=== PATIENT | female | born 1930 | race Caucasian/White ===

== ENCOUNTER 2016-10-27 13:09 | Inpatient (IN) ==
[2016-10-27] MEDS ORDERED: Ondansetron 4 MG/2 ML VIAL IVP PRN (16:12)
[2016-10-27] MEDS ORDERED: *HR* HYDROcodone/Acet 5/325 mg TABLET PO PRN (16:12)
[2016-10-27] MEDS ORDERED: *HR* Morphine 2 MG/ML SYRINGE IVP PRN (16:12)
[2016-10-27] MEDS ORDERED: Acetaminophen 325 MG TABLET PO PRN (16:12)
[2016-10-27] MEDS ORDERED: Naloxone 0.4 MG/ML INJ IVP PRN (16:12)
[2016-10-27] MEDS ORDERED: *HR* Promethazine 25 MG/ML VIAL IVP PRN (16:12)
--- NOTE | 2016-10-27 16:13 | Orthopedic Consult Note ---
Date of Encounter: 10/27/16 Time of Encounter: 16:04 History of Present Illness HPI: Ms. Morales is a 86 year old female Lives alone at home status post fall injuring her right hand and right hip. Patient denies any head trauma denies any loss of consciousness. Past medical history most significant for coronary artery disease status post bypass surgery 2 years ago Physical exam Alert and oriented 3 Right lower extremity Short and externally rotated Decreased range of motion secondary to pain NVI x-ray - right hip fracture intertrochanteric non disp right distal radius fracture. Plan is for right hip ORIM fixation - non operative treatment for the wrist. Past Med Surg Social Fam HX - Past Medical History Medical history: coronary artery disease, diabetes, hyperlipidemia, hypertension , other Psychiatric history: no psych history - Past Surgical History Surgical History: appendectomy, cholecystectomy, coronary bypass (CABG) - Social History Smoking Status: Unknown if ever smoked Smokeless Tobacco Status: No Alcohol use: none Drug use: none Medications and Allergies Amlodipine [Norvasc] 5 mg PO DAILY 01/19/15 [History] Aspirin Enteric Coated [Aspirin] 81 mg PO DAILY 01/19/15 [History] Furosemide [Lasix] 40 mg PO DAILY 01/19/15 [History] Magnesium Oxide [Mag-Ox] 400 mg PO BID 01/19/15 [History] Metoprolol [Lopressor] 25 mg PO BID 01/19/15 [History] Potassium Chloride 20 meq PO DAILY 01/19/15 [History] Simvastatin [Zocor] 80 mg PO HS 01/19/15 [History] TraMADol [Ultram] 50 mg PO Q4HR 01/19/15 [History] glipiZIDE [Glucotrol] 10 mg PO BIDWM 01/19/15 [History] Allergies No Known Allergies Allergy (Verified 10/27/16 11:13) All Systems Reviewed: A 10-system review of systems was performed and is negative for pertinent findings except as documented above in the HPI. Physical Exam - Constitutional Vitals: Temp Pulse Resp BP Pulse Ox 98.4 F 78 17 113/50 95 10/27/16 15:43 10/27/16 15:43 10/27/16 15:43 10/27/16 15:43 10/27/16 15:45 Results - Labs Labs: All other labs normal. Consult Discharge Plan - Plan Referrals: NONE,PCP [Primary Care Provider] -
[2016-10-27] MEDS ORDERED: 0.9 % Sodium Chloride 1,000 ML IVC SCH (16:15)
--- NOTE | 2016-10-27 16:39 | Cardiology Consult Note ---
Date of Encounter: 10/27/16 Time of Encounter: 16:30 Assessment and Plan (1) Fracture, intertrochanteric, right femur Current Visit: No Status: Acute Per Cardiology: Status post what appears to be mechanical fall. Management per primary service with pending surgery tomorrow morning. Pain currently appears well controlled. Qualifiers: Encounter type: initial encounter Fracture type: closed Fracture alignment: displaced Qualified Code(s): S72.141A - Displaced intertrochanteric fracture of right femur, initial encounter for closed fracture (2) CAD (coronary artery disease) Current Visit: Yes Status: Chronic Per Cardiology: Known history of CAD with CABG 4 in [place] [address] Mckinnon. Reports no ischemic evaluation since bypass. 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 Recommend resume aspirin, statin, and beta michelle-- home meds. Qualifiers: Coronary Disease-Associated Artery/Lesion type: [place] artery [place] vs. transplanted heart: [place] heart Associated angina: without angina Qualified Code(s): I25.10 - Atherosclerotic heart disease of [place] coronary artery without angina pectoris (3) Preop cardiovascular exam Current Visit: Yes Status: Acute Per Cardiology: Patient denies any chest pain symptoms. ECG reviewed and discussed with Dr. Crews and comparable to baseline. Echo pending. Assuming no significant findings on echo patient to be considered intermediate risk for planned procedure from cardiac standpoint. Recommend beta michelle preoperatively. Discussed and reviewed with Dr. Crews. Patient and family agreeable to follow- up with cardiology in outpatient setting, follow-up scheduled. Patient and family agreeable to plan. Discussion w patient/family: The assessment and plan as outlined above was discussed with the patient and/or family members who expressed understanding and agreement. All questions were answered. Thank you for involving us in the care of your patient. Please call with any questions. History of Present Illness Consult date: 10/27/16 Requesting physician: Marlo Turner Consult reason: Preop, s/p fall Chief complaint: R hip pain History of present illness: Ms. Morales is a 86 year old female with a relevant past medical history CAD with CABG 4 in [address] [place] [address] Mckinnon. Patient and family deny any catheterization or stress test since surgery. Also has relevant past medical history of peripheral artery disease with a right CEA in 2004, history of CVA about 40 years ago, hysterectomy, CKD, HLD, DM2, and HTN. Cardiology consult for preoperative evaluation for pending surgery tomorrow morning. Patient seen with family at bedside. Patient denies any chest pain, short of breath, palpitations. Reports "been doing well" since her bypass surgery. She reports mechanical fall tripping on her porch. She denies any dizziness, palpitations, loss of consciousness. Denies any current chest pain or shortness of breath. Lives at home alone. Past Med Surg Social Fam HX - Past Medical History Attestation: Yes The following information was validated with the patient. Source: patient, old records reviewed, obtained from family Medical history: coronary artery disease, diabetes, hyperlipidemia, hypertension , other Psychiatric history: no psych history - Past Surgical History Surgical History: appendectomy, cholecystectomy, coronary bypass (CABG) - Social History Smoking Status: Unknown if ever smoked Smokeless Tobacco Status: No Alcohol use: none Drug use: none Medications and Allergies Amlodipine [Norvasc] 5 mg PO DAILY 01/19/15 [History] Aspirin Enteric Coated [Aspirin] 81 mg PO DAILY 01/19/15 [History] Furosemide [Lasix] 40 mg PO DAILY 01/19/15 [History] Magnesium Oxide [Mag-Ox] 400 mg PO BID 01/19/15 [History] Metoprolol [Lopressor] 25 mg PO BID 01/19/15 [History] Potassium Chloride 20 meq PO DAILY 01/19/15 [History] Simvastatin [Zocor] 80 mg PO HS 01/19/15 [History] TraMADol [Ultram] 50 mg PO Q4HR 01/19/15 [History] glipiZIDE [Glucotrol] 10 mg PO BIDWM 01/19/15 [History] Allergies No Known Allergies Allergy (Verified 10/27/16 11:13) All Systems Review: A 10-system review of systems was performed and is negative for pertinent findings except as documented above in the HPI. - Cardiovascular Cardiovascular: as per HPI - Musculoskeletal Musculoskeletal: other (R hip pain) Physical Examination Vital Signs, Last 4 Hours Temp Pulse Resp BP Pulse Ox 10/27/16 15:45 95 10/27/16 15:43 98.4 F 78 17 113/50 95 General: Conversant, No Apparent Distress HEENT: Atraumatic, Normocephaly, Mucus Membranes Moist Neck: No JVD, Normal carotid pulses Cardiac: Reg Rate and Rhythm, Normal S1 and S2, No Murmur Lungs: Normal Breath Sounds, No Wheeze, Rales, Rhonchi Neuro: Alert and responsive, No focal deficits noted Abdomen: Soft, Non-Tender Skin: No rashes noted on visualized skin Musculoskeletal: No Chest Wall Tenderness Extremities: No Clubbing, No Cyanosis, No Edema, Normal Pulses Results Laboratory Tests 10/27/16 10/27/16 10/27/16 11:49 11:49 11:49 Hgb 11.5 Hct 33.8 L Plt Count 191 INR 1.1 Creatinine 1.54 H Est GFR (Non-Af Amer) 32 L AST 16 ALT 9 Active Medications Acetaminophen (Tylenol) 650 mg PO Q6HR PRN PRN Reason: Mild Pain (1-3) Stop: 04/28/17 16:13 Hydrocodone Bitart/Acetaminophen ([place] 5-325 Mg) 1 tab PO Q4HR PRN PRN Reason: Moderate Pain (4-6) Stop: 04/28/17 16:13 Enoxaparin Sodium (Lovenox) 30 mg SQ 0600 MARY PRN Reason: Protocol Stop: 04/29/17 06:01 Famotidine (Pepcid) 20 mg PO BID [facility] Stop: 04/28/17 21:01 Sodium Chloride (0.9 % Sodium Chloride) 1,000 mls @ 75 mls/hr IVC .[id number] [facility] Stop: 04/28/17 16:16 Morphine Sulfate (Morphine Sulfate) 2 mg IVP Q4HR PRN PRN Reason: Severe Pain (7-10) Stop: 04/28/17 16:13 Naloxone HCl (Narcan) 0.4 mg IVP Q2MIN PRN PRN Reason: Opioid Reversal Stop: 04/28/17 16:13 Ondansetron HCl (Zofran) 4 mg IVP Q8HR PRN PRN Reason: Nausea And Vomiting Stop: 04/28/17 16:13 Ondansetron HCl (Zofran Odt) 4 mg SL Q8HR PRN PRN Reason: Nausea And Vomiting Stop: 04/28/17 16:13 Promethazine HCl (Phenergan) 12.5 mg IVP Q6HR PRN PRN Reason: Nausea And Vomiting Stop: 04/28/17 16:13 - Imaging and Cardiology Echo: pending - EKG Interpretation EKG results cardiology: personally reviewed (comparable to previous ECG), sinus rhythm Consult Discharge Plan - Plan Referrals: NONE,PCP [Primary Care Provider] -
[2016-10-27 17:08] LABS: Basophils % 0.2 %; Hematocrit 33.2 % (35.3-44.9); Hemoglobin 10.6 g/dL (11.5-15.4); Immature Granulocytes % 0.7 % (0-4); Lymphocytes # 0.9 K/mcL (0.6-4.6); Lymphocytes % 5.2 %; Mean Corpuscular HGB Conc 31.9 g/dL (31.6-35.5); Mean Corpuscular Hemoglobin 30.5 pg (28.0-33.3); Mean Corpuscular Volume 95.4 fL (83.0-100.0); Mean Platelet Volume 11.2 fL (9.4-12.4); Monocytes # 1.1 K/mcL (0.0-1.3); Neutrophils # 15.5 K/mcL (1.6-8.9); Platelet Count 189 K/mcL (140-400); Red Blood Count 3.48 M/mcL (3.82-4.97); Red Cell Distribution Width 13.2 % (11.5-14.5); Segmented Neutrophils % 87.9 %
[2016-10-27 17:16] LABS: INR 1.1
[2016-10-27 17:18] LABS: Activated Partial Thrombo Time 31.8 Seconds (26.0-36.0)
[2016-10-27 17:22] LABS: Calcium 8.5 mg/dL (8.6-10.8)
--- NOTE | 2016-10-27 19:02 | Internal Med History&Physical ---
Date of Encounter: 10/27/16 Time of Encounter: 18:52 Assessment and Plan (1) Fracture, intertrochanteric, right femur Current visit: No Status: Acute Admit the pt into Tele Cont symptomatic and supportive care started on gentle IV hydration NPO after mid night IV analgesics Ortho Dr. Turner already seen the pt ..scheduled for surgery in AM Consulted Cardiology for pre op cardiac eval since pt is going for major surgery PT / OT eval On Lovenox for DVT prophylaxis Qualifiers: Encounter type: initial encounter Fracture type: closed Fracture alignment: displaced Qualified Code(s): S72.141A - Displaced intertrochanteric fracture of right femur, initial encounter for closed fracture (2) Radius distal fracture Current visit: No Status: Acute Cont wrist splint Need to f/u with Ortho as an out pt closely PT / OT eval Qualifiers: Encounter type: initial encounter Fracture type: closed Fracture morphology: other intra-articular Laterality: right Qualified Code(s): S52.571A - Other intraarticular fracture of lower end of right radius, initial encounter for closed fracture (3) CAD (coronary artery disease) Current visit: Yes Status: Chronic Ordered 2 D Echo Resumed home med ASA, Statin, and B michelle Qualifiers: Coronary Disease-Associated Artery/Lesion type: [place] artery [place] vs. transplanted heart: [place] heart Associated angina: without angina Qualified Code(s): I25.10 - Atherosclerotic heart disease of [place] coronary artery without angina pectoris (4) Diabetes mellitus Current visit: Yes Status: Acute Placed her on ISS Check HbA1C Held PO meds for today Qualifiers: Diabetes mellitus type: type 2 Diabetes mellitus complication status: without complication Qualified Code(s): E11.9 - Type 2 diabetes mellitus without complications (5) Hypertension Current visit: Yes Status: Acute Resumed home meds Including Metoprolol and Norvasc Qualifiers: Qualified Code(s): I10 - Essential (primary) hypertension Internal Medicine - H&P: HPI Chief complaint: Fall with Rt hip and Rt wrist fx History of present illness: Ms. Morales is a 86 year old female with a PMH of CKD, HLD, DM2, HTN and CAD with CABG 4 in [address] [place] [address] Mckinnon, peripheral artery disease with a right CEA in 2004, history of CVA pt presented to ER after a fall this morning. Pt had a mechanical fall tripping on her porch and developed severe pain in Rt hip. Pt had further work up done which showed Rt femur intertronchanteric fx and Rt wrist fx. Orthopedician Dr. Turner was consulted who is planning on doing surgery in AM. Patient and family denied any catheterization or stress test since her CABG. Pt also denied any CP / SOB. Feeling nauseated.. Her pain is well controlled with current pain medication Past Med Surg Social Fam HX - Past Medical History Medical history: coronary artery disease, diabetes, hyperlipidemia, hypertension , other Psychiatric history: no psych history - Past Surgical History Surgical History: appendectomy, cholecystectomy, coronary bypass (CABG) - Social History Smoking Status: Unknown if ever smoked Smokeless Tobacco Status: No Alcohol use: none Drug use: none - Additional Family History Additional family history: Reviewed and non contribuitory to the current problem Internal Medicine - H&P: Meds Amlodipine [Norvasc] 5 mg PO DAILY 01/19/15 [History] Aspirin Enteric Coated [Aspirin] 81 mg PO DAILY 01/19/15 [History] Furosemide [Lasix] 40 mg PO DAILY 01/19/15 [History] Magnesium Oxide [Mag-Ox] 400 mg PO BID 01/19/15 [History] Metoprolol [Lopressor] 25 mg PO BID 01/19/15 [History] Potassium Chloride 20 meq PO DAILY 01/19/15 [History] Simvastatin [Zocor] 80 mg PO HS 01/19/15 [History] TraMADol [Ultram] 50 mg PO Q4HR 01/19/15 [History] glipiZIDE [Glucotrol] 10 mg PO BIDWM 01/19/15 [History] Allergies No Known Allergies Allergy (Verified 10/27/16 11:13) All Systems PM: A 10-system review of systems was performed and is negative for pertinent findings except as documented above in the HPI. Review of systems: All the systems are reviewed everything is benign except the systems and symptoms I mentioned in the history of present illness - Constitutional Vitals: Temp Pulse Resp BP Pulse Ox 98.4 F 78 17 113/50 95 10/27/16 15:43 10/27/16 15:43 10/27/16 15:43 10/27/16 15:43 10/27/16 15:45 General appearance: Present: mild distress, A&O X 3, answers questions appropriately - Head Head exam: Present: atraumatic, normal inspection - Eye Eye exam: Present: normal appearance - Neck Neck exam general surgery: Present: full ROM, supple. Absent: lymphadenopathy - Respiratory Respiratory exam: Present: decreased breath sounds. Absent: rales, rhonchi, wheezes - Cardiovascular Cardiovascular exam: Present: RRR, +S1, +S2. Absent: diastolic murmur, gallop, systolic murmur - GI/Abdominal GI/Abdominal exam: Present: normal bowel sounds, soft, no peritoneal signs. Absent: distended, tenderness - Extremities Exam Extremities exam: Absent: calf tenderness, pedal edema, tenderness Additional comments: splint placed on Rt wrist.. Able to wiggle her Rt hand fingers..Neuro vascularly intact distally in RUE and RLE Mild swelling and tenderness noticed over rt hip - Neurological Exam Neurological exam: Present: alert, oriented X3 - Psychiatric Psychiatric exam: Present: normal affect, normal mood - Skin Skin exam: Present: intact. Absent: rash Internal Med - H&P Results - Labs CBC & Chem 7: 10/27/16 16:52 10/27/16 16:52 Labs: Short CBC 10/27/16 Range/Units 16:52 WBC 17.6 H D (4.3-11.1) K/mcL Hgb 10.6 L (11.5-15.4) g/dL Hct 33.2 L (35.3-44.9) % Plt Count 189 (140-400) K/mcL Neutrophils # 15.5 H (1.6-8.9) K/mcL BMP 10/27/16 16:52 Sodium 142 Potassium 4.0 Chloride 109 Carbon Dioxide 22 BUN 18 Creatinine 1.47 H Glucose 185 H Calcium 8.5 L - EKG Data -: EKG Interpreted by Myself (Sinus rythm with VR 82. Mild first degree AV blokc. Incomplete RBBB.) EKG shows normal: sinus rhythm Rate: normal
[2016-10-27] MEDS ORDERED: Dextrose Gel 15 GM PO PRN ×2 (19:11)
[2016-10-27] MEDS ORDERED: *HR* Dextrose 50 % in Water (Syg) 50 ML SYRINGE IVP PRN (19:11)
[2016-10-27] MEDS ORDERED: D5% in Water 1,000 ML IVC PRN (19:11)
[2016-10-27] MEDS ORDERED: Insulin LISPRO 300 UNITS/3 ML VIAL SQ SCH (19:15)
[2016-10-27] MEDS: Ondansetron ODT 4 MG TAB.RAPDIS SL PRN (19:32)
[2016-10-27] MEDS ORDERED: *HR* Morphine 2 MG/ML SYRINGE IVP ONE (20:23)
[2016-10-27 20:59] LABS: Hemoglobin A1C 6.7 %
[2016-10-27] MEDS ORDERED: Famotidine 20 MG TABLET PO SCH (21:00)
[2016-10-27] MEDS ORDERED: Magnesium Oxide 400 MG TABLET PO SCH (21:00)
[2016-10-27] MEDS: *HR* Morphine 2 MG/ML SYRINGE IVP PRN (23:40)
[2016-10-28] MEDS: Ondansetron ODT 4 MG TAB.RAPDIS SL PRN (05:28)
[2016-10-28] MEDS: *HR* Morphine 2 MG/ML SYRINGE IVP PRN (05:57)
[2016-10-28] MEDS ORDERED: *HR* Enoxaparin 30 MG/0.3 ML SYRINGE SQ SCH (06:00)
[2016-10-28 07:07] LABS: Basophils % 0.1 %; Hematocrit 31.1 % (35.3-44.9); Hemoglobin 9.5 g/dL (11.5-15.4); Immature Granulocytes % 0.6 % (0-4); Lymphocytes # 1.3 K/mcL (0.6-4.6); Lymphocytes % 6.9 %; Mean Corpuscular HGB Conc 30.5 g/dL (31.6-35.5); Mean Corpuscular Hemoglobin 30.3 pg (28.0-33.3); Mean Platelet Volume 11.7 fL (9.4-12.4); Monocytes # 0.9 K/mcL (0.0-1.3); Monocytes % 4.6 %; Neutrophils # 16.9 K/mcL (1.6-8.9); Platelet Count 183 K/mcL (140-400); Red Blood Count 3.14 M/mcL (3.82-4.97); Red Cell Distribution Width 13.5 % (11.5-14.5); Segmented Neutrophils % 87.8 %
[2016-10-28] MEDS ORDERED: Lidocaine -MPF 2% 2 ML VIAL ONE ×2 (07:21→07:22)
[2016-10-28] MEDS ORDERED: *HR* Etomidate 40 MG/20 ML VIAL IVP ONE (07:21)
[2016-10-28] MEDS ORDERED: Ringers Solution, Lactated 1,000 ML ONE (07:21)
[2016-10-28] MEDS ORDERED: *HR* Succinylcholine 200 MG/10 ML VIAL IVP ONE (07:21)
[2016-10-28] MEDS ORDERED: Ringers Solution, Lactated 1,000 ML IVC SCH (07:22)
[2016-10-28] MEDS ORDERED: *HR* FentaNYL (PF) 100 MCG/2 ML VIAL ONE (07:22)
[2016-10-28] MEDS ORDERED: *HR* Propofol 200 MG/20 ML VIAL IVP ONE (07:22)
[2016-10-28] MEDS ORDERED: Lidocaine -MPF 4% 5 ML AMPUL ONE (07:25)
[2016-10-28 07:28] LABS: Calcium 8.5 mg/dL (8.6-10.8); Magnesium 1.8 mg/dL (1.6-2.6); Potassium 4.9 mEq/L (3.5-4.5)
--- NOTE | 2016-10-28 07:38 | Anesthesia Evaluation PreOp ---
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 Other Medical History: Diabetes Type II (maintained on Glipizide) Anesthesia History: No Prior Anesthetic Complications, Past Anesthesia ([place], [place], CABG) Alcohol Use: none Drug use: none Medications and Allergies Amlodipine [Norvasc] 5 mg PO DAILY 01/19/15 [History] Aspirin Enteric Coated [Aspirin] 81 mg PO DAILY 01/19/15 [History] Furosemide [Lasix] 40 mg PO DAILY 01/19/15 [History] Magnesium Oxide [Mag-Ox] 400 mg PO BID 01/19/15 [History] Metoprolol [Lopressor] 25 mg PO BID 01/19/15 [History] Potassium Chloride 20 meq PO DAILY 01/19/15 [History] Simvastatin [Zocor] 80 mg PO HS 01/19/15 [History] TraMADol [Ultram] 50 mg PO Q4HR 01/19/15 [History] glipiZIDE [Glucotrol] 10 mg PO BIDWM 01/19/15 [History] Allergies No Known Allergies Allergy (Verified 10/27/16 11:13) - Meds/Allergy Pre-op Review Medications Reviewed: Yes Allergies Reviewed: Yes Beta Blockers on Current Med List: Yes (Metoprolol) If Beta Blockers taken, Date/Time (Last Dose taken): 10/27/16 @ 2056 Anesthesia Results - Labs 10/28/16 06:38 10/28/16 06:38 Laboratory Tests 10/27/16 10/27/16 10/28/16 16:52 16:52 04:03 PT 12.0 INR 1.1 APTT 31.8 POC Glucose 223 H Est Mean Plasma Glucose 146 Hemoglobin A1c 6.7 H - Imaging EKG: image reviewed (82bpm SR - 1st degree AVBlock, RBBB) Anesthesia Exam Vital Signs Temp Pulse Resp BP Pulse Ox 10/28/16 05:05 98.0 F 78 16 122/61 93 07/29/17 00:01 98.1 F 77 18 125/65 94 10/27/16 20:11 98.4 F 83 22 129/62 94 10/27/16 15:45 95 10/27/16 15:43 98.4 F 78 17 113/50 95 Intake and Output 10/27/16 10/27/16 10/28/16 15:59 23:59 07:59 Intake Total 100 / 100 Output Total 500 / 500 Balance 100 / 100 -500 / -500 Intake: Oral 100 / 100 Output: Catheter 500 / 500 Other: Weight 71.3 kg Blood Glucose* 188 Height: 5'4" Weight: 157# bmi = 27 NPO (# of Hours): MNoc - HEENT Pupil (Motor): Pupils equal, EOMI Teeth: Edentulous (Pt sleeping/groaning, unable to cooperate with airway exam) Oral Opening: Greater than 3 - TARIFF COMPILING CLERK LOC: Uncooperative, Unable to assess TARIFF COMPILING CLERK Motor: Normal RUE, Normal LUE, Normal LLE, Normal Face, Deficit RLE TARIFF COMPILING CLERK Sensory: Normal: RUE, LUE, LLE, Face, Deficit: RLE - Cardiac Rhythm: Regular Murmur: None JVD: No - Pulmonary Breath Sounds: bilateral Clear Respiratory Effort: Symmetrical Anesthesia Assess/Plan ASA Score: 3 Anesthetic Plan: General Monitoring Plan: Standard Monitors Recovery Plan: PACU Anes Supervising Prov Stmt: Pt seen/evaluated, R&B discussed w/[facility] [son] Tato Morales [[phone] mobile]. Son present w/his in HR#1. Questions answered and consent obtained. Aundrea Brice MD
[2016-10-28] MEDS ORDERED: Metoclopramide 10 MG/2 ML VIAL ONE (07:50)
[2016-10-28] MEDS ORDERED: Acetaminophen IV 1,000 MG/100 ML INFUS..BTL ONE (07:50)
[2016-10-28] MEDS ORDERED: Famotidine 20 MG/2 ML VIAL ONE (07:51)
[2016-10-28] MEDS ORDERED: Ondansetron 4 MG/2 ML VIAL ONE (08:33)
[2016-10-28] MEDS ORDERED: Dexamethasone 4 MG/ML VIAL ONE (08:33)
[2016-10-28] MEDS ORDERED: *HR* HYDROmorphone (PF) 1 MG/ML SYRINGE IVP PRN ×2 (08:40→09:38)
[2016-10-28] MEDS ORDERED: *HR* Promethazine 25 MG/ML VIAL IVP PRN (08:40)
[2016-10-28] MEDS ORDERED: *HR* Labetalol 20 MG/4 ML SYRINGE IVP PRN (08:40)
--- NOTE | 2016-10-28 08:45 | Orthopedic Operative Note ---
Date of procedure: 10/28/16 Pre-op diagnosis: Displaced intertrochanteric hip fracture right Post-op diagnosis: same Procedure: Procedure: Right hip open reduction intramedullary nail fixation Estimated blood loss: 50 cc Hardware: Metal: 10 x 130 Synthes TFN, 100 helical blade, 36 distal locking bolt Operative procedure: The patient was brought to the operating room and placed on the operating room table. After general anesthesia was administered the well leg was place in the well leg estrella and the operative leg was placed in the fracture leg estrella. All pressure points were padded appropriately. The operative extremity was prepped and draped in the sterile surgical fashion patient received IV antibiotic prior to skin incision. A standard direct lateral approach was made over the entry point of the greater trochanter, the incision was made through the skin and subcutaneous tissue hemostasis was obtained with Bovie cautery. Using careful sharp dissection the fascia was identified and incised, flouroscopic assistance was used to identify the entry point. The guidepin was placed at the entry point using fluroscopic assistance, it was over reamed with the proximal reamer. The 10 x 130 nail was placed through the entry hole, across the fracture site into the distal fragment the position was confirmed with fluroscopy. A guide pin was placed through the proximal locking guide from the lateral femur through the nail across the fracture site into the femoral head, it was over reamed with the reamer. The 100 mm helical blade was placed over the guide pin through the nail into the femoral head, locked in place with the proximal locking bolt. 36 mm Distal locking bolt was placed through the distal locking guide. The position of hardware and fracture reduction found to be acceptable with fluroscopic assistance. The wound was irrigated. Fascia was closed with a running #2 PDS suture. The deep tissue was irrigated and closed deep with #1 PDS suture superficially with 0 PDS suture and skin was closed with genet. The patient was placed in a sterile dressing The patient was extubated and transferred to the recovery room in stable condition. Anesthesia: GETA Surgeon: Marlo Turner Condition: stable Disposition: PACU
[2016-10-28] MEDS ORDERED: Aspirin Enteric Coated 81 MG Tablet PO SCH (09:00)
[2016-10-28] MEDS ORDERED: amLODIPine 5 MG TABLET PO SCH (09:00)
[2016-10-28] MEDS ORDERED: Metoprolol XL (24 HR) Succ 25 MG TAB.ER.24H PO SCH (09:00)
[2016-10-28] MEDS ORDERED: Aspirin 81 MG TAB.CHEW PO SCH (09:00)
[2016-10-28] MEDS ORDERED: Esmolol 100 MG/10 ML VIAL IVP ONE (09:36)
--- NOTE | 2016-10-28 09:37 | Anesthesia Evaluation Post Op ---
Date of Encounter: 10/28/16 Time of Encounter: 09:35 - Vital Signs Vital Signs: Vital Signs Temp Pulse Resp BP Pulse Ox 10/28/16 09:32 97.2 F L 70 12 144/59 100 10/28/16 09:22 71 12 149/56 100 10/28/16 09:12 68 8 160/56 100 10/28/16 09:02 98 F 68 10 150/66 100 10/28/16 05:05 98.0 F 78 16 122/61 93 10/28/16 00:01 98.1 F 77 18 125/65 94 10/27/16 20:11 98.4 F 83 22 129/62 94 10/27/16 15:45 95 10/27/16 15:43 98.4 F 78 17 113/50 95 Intake and Output 10/27/16 10/28/16 10/28/16 23:59 07:59 15:59 Intake Total 100 / 100 Output Total 500 / 500 15 / 15 Balance 100 / 100 -500 / -500 -15 / -15 Intake: Oral 100 / 100 Output: Estimated Blood Loss 15 Catheter 500 / 500 Other: Blood Glucose* 188 200 - Lungs Lungs: Clear Ascult./Percussion - Airway Airway: Non-obstructed - Cardiovascular Regular Rate - Mental Status Mental Status: Asleep with brisk response to light stimulation - Pain Pain Scale: 1 Pain Scale used: RubioMartinez (Faces) - Nausea Vomiting Nausea Vomiting: Not Present - Hydration Hydration: NPO, Sullivan catheter - Discharge PostOp Status: Transfer Patient to floor Anes Supervising Prov Stmt: pt seen/evaluated, VSS and pt has met criteria for discharge to home. - MD Yuniel
[2016-10-28] MEDS ORDERED: ceFAZolin 2,000 MG in D5% in Water 100 ML IVPB SCH (09:38)
[2016-10-28] MEDS ORDERED: Ondansetron ODT 4 MG TAB.RAPDIS SL PRN (09:38)
[2016-10-28] MEDS ORDERED: Dextrose Gel 15 GM PO PRN ×4 (09:38→13:58)
[2016-10-28] MEDS ORDERED: D5% in Water 1,000 ML IVC PRN ×2 (09:38→13:58)
[2016-10-28] MEDS ORDERED: *HR* Dextrose 50 % in Water (Syg) 50 ML SYRINGE IVP PRN ×2 (09:38→13:58)
[2016-10-28] MEDS ORDERED: *HR* HYDROcodone/Acet 5/325 mg TABLET PO PRN (09:38)
[2016-10-28] MEDS ORDERED: Naloxone 0.4 MG/ML INJ IVP PRN (09:38)
[2016-10-28] MEDS: Ringers Solution, Lactated 1,000 ML IVC SCH (09:55)
[2016-10-28 10:45] LABS: Hematocrit 30.5 % (35.3-44.9); Hemoglobin 9.4 g/dL (11.5-15.4)
[2016-10-28] MEDS ORDERED: Insulin LISPRO 300 UNITS/3 ML VIAL SQ SCH (11:30)
[2016-10-28] MEDS: 0.9 % Sodium Chloride 1,000 ML IVC SCH (12:13)
--- NOTE | 2016-10-28 13:54 | Internal Med Progress Note ---
Date of Encounter: 10/28/16 Time of Encounter: 13:51 - Assessment and plan (1) Fracture, intertrochanteric, right femur Current Visit: No Status: Acute Assessment and plan: s/p right hip ORIM fixation (10/28/16) orthopedic evaluation appreciated DVT ppx with Enoxaparin SQ continue post op care as per ortho PT/OT eval when able Qualifiers: Encounter type: initial encounter Fracture type: closed Fracture alignment: displaced Qualified Code(s): S72.141A - Displaced intertrochanteric fracture of right femur, initial encounter for closed fracture (2) Radius distal fracture Current Visit: No Status: Acute Assessment and plan: splint in place pain control Qualifiers: Encounter type: initial encounter Fracture type: closed Fracture morphology: other intra-articular Laterality: right Qualified Code(s): S52.571A - Other intraarticular fracture of lower end of right radius, initial encounter for closed fracture (3) CAD (coronary artery disease) Current Visit: Yes Status: Chronic Assessment and plan: continue home medications Qualifiers: Coronary Disease-Associated Artery/Lesion type: [place] artery [place] vs. 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 Qualified Code(s): E11.9 - Type 2 diabetes mellitus without complications (5) Hypertension Current Visit: Yes Status: Acute Assessment and plan: BP within acceptable range continue home medications Qualifiers: Hypertension type: essential hypertension Qualified Code(s): I10 - Essential (primary) hypertension (6) DVT prophylaxis Current Visit: Yes Status: Acute Assessment and plan: Lovenox SQ (7) [place]-[id number]-[id number] kidney injury Current Visit: Yes Status: Acute Assessment and plan: of unclear etiology concern for UTI pt started on abx by ortho post-operatively will f/u UA and urine culture will closely monitor renal function Qualifiers: Acute renal failure type: unspecified Chronic kidney disease stage: unspecified stage Qualified Code(s): N17.9 - Acute kidney failure, unspecified ; N18.9 - Chronic kidney disease, unspecified - Subjective Interval history: Pt seen and examined with family at bedside. Patient post-op right hip open reduction intramedullary nail fixation. Currently sedated and sleeping comfortably. - Constitutional Vitals: Temp Pulse Resp BP Pulse Ox 97.9 F 72 12 136/69 99 10/28/16 12:47 10/28/16 12:47 10/28/16 12:47 10/28/16 12:47 10/28/16 12:47 General appearance: Present: no acute distress (sleeping -s/p procedure- currently sedated), answers questions appropriately - Head Head exam: Present: atraumatic, normocephalic - Eye Eye exam: Present: conjuntiva pink, sclera anicteric - Respiratory Respiratory exam: Absent: respiratory distress, wheezes - Cardiovascular Cardiovascular exam: Present: RRR, +S1, +S2. Absent: diastolic murmur, gallop, rubs, systolic murmur - GI/Abdominal GI/Abdominal exam: Present: normal bowel sounds, soft, no peritoneal signs. Absent: distended, tenderness - Extremities Exam Extremities exam: Present: warm, radial pulses palpable and symetrical. Absent : calf tenderness, pedal edema Internal Medicine: Result - Labs CBC & Chem 7: 10/28/16 09:37 10/28/16 06:38 Labs: Short CBC 10/27/16 10/28/16 10/28/16 Range/Units 16:52 06:38 09:37 WBC 17.6 H D 19.2 H (4.3-11.1) K/mcL Hgb 10.6 L 9.5 L 9.4 L (11.5-15.4) g/dL Hct 33.2 L 31.1 L 30.5 L (35.3-44.9) % Plt Count 189 183 (140-400) K/mcL Neutrophils # 15.5 H 16.9 H (1.6-8.9) K/mcL BMP 10/27/16 10/28/16 16:52 06:38 Sodium 142 138 Potassium 4.0 4.9 H Chloride 109 107 Carbon Dioxide 22 22 BUN 18 28 H D Creatinine 1.47 H 1.80 H Glucose 185 H 266 H Calcium 8.5 L 8.5 L - ABG Interpretation ABG results: PT/INR, D-dimer PT 12.0 Seconds (9.4-12.1) 10/27/16 16:52 - Impressions Impressions Fluoroscopy 10/28/16 00:00 IMPRESSION: Intraprocedural fluoroscopic spot images as above. See separate procedure report for more information. D/ / 10/28/2016 09:11:59 Lilian Gonzalez MD / Laila Lange Interpreting Provider: Lilian Gonzalez MD Consult Discharge Plan - Plan Referrals: NONE,PCP [Primary Care Provider] -
[2016-10-28] MEDS: ceFAZolin 2,000 MG in D5% in Water 100 ML IVPB SCH (15:53)
[2016-10-28] MEDS: Insulin LISPRO 300 UNITS/3 ML VIAL SQ SCH ×2 (16:50→21:23)
[2016-10-28 20:10] LABS: Bilirubin,Urine Negative (Negative); Blood,Urine Small (Negative); Clarity,Urine Cloudy (Clear); Color,Urine Yellow (Yellow); Glucose,Urine (UA) Normal (Normal); Ketones,Urine Trace mg/dL (Negative); Leukocyte Esterase,Urine Moderate (Negative); Nitrite,Urine Negative (Negative); PH,Urine 5.5 pH Units (5.0-8.0); Protein,Urine 100 mg/dL (Neg-Trace); Specific Gravity,Urine 1.028 (1.010-1.025); Urobilinogen,Urine Normal (Normal)
[2016-10-28 20:13] LABS: Hyaline Casts,Urine None Seen per lpf (None-Few); Squamous Epithelial Cell,Urine Moderate per lpf (None-Few); WBC,Urine TNTC per hpf (0-3)
[2016-10-28 20:26] LABS: Bacteria,Urine Many per hpf (None-Few)
[2016-10-28] MEDS: *HR* Promethazine 25 MG/ML VIAL IVP PRN (21:22)
[2016-10-28] MEDS: Famotidine 20 MG TABLET PO SCH (21:22)
[2016-10-28] MEDS: Magnesium Oxide 400 MG TABLET PO SCH (21:23)
[2016-10-29] MEDS: ceFAZolin 2,000 MG in D5% in Water 100 ML IVPB SCH (00:39)
[2016-10-29] MEDS: 0.9 % Sodium Chloride 1,000 ML IVC SCH ×2 (00:55→08:18)
--- NOTE | 2016-10-29 01:12 | Orthopedics Progress Note ---
Date of Encounter: 10/29/16 Time of Encounter: 01:12 Subjective Interval history: Patient was seen this morning doing well without complaints. Afebrile vital signs stable. Operative extremity: Neurovascularly intact Dressing clean dry and intact Calves nontender Assessment and plan: Continue with postoperative care Postop hematocrit 30 continue with postoperative care Objective Vital signs: Vital Signs Temp Pulse Resp BP Pulse Ox 10/29/16 00:58 98.2 F 76 15 125/60 99 10/28/16 21:43 98.5 F 77 16 132/64 99 10/28/16 12:47 97.9 F 72 12 136/69 99 10/28/16 12:05 97.6 F 71 12 145/72 100 10/28/16 11:00 97.9 F 71 12 145/75 100 10/28/16 09:46 74 6 133/52 97 10/28/16 09:32 97.2 F L 70 12 144/59 100 10/28/16 09:22 71 12 149/56 100 10/28/16 09:12 68 8 160/56 100 10/28/16 09:02 98 F 68 10 150/66 100 10/28/16 06:41 97.8 F 78 16 129/58 96 10/28/16 05:05 98.0 F 78 16 122/61 93 Intake and Output 10/28/16 10/28/16 10/29/16 15:59 23:59 07:59 Intake Total 100 / 100 1000 / 1000 Output Total 215 / 215 80 / 80 Balance -215 / -215 20 / 20 1000 / 1000 Intake: IV Fluids 100 / 100 1000 / 1000 0.9 % Sodium Chloride 1, 1000 / 1000 000 ML @ 75 mls/hr IVC . [id number] MARY Rx#: [id number] Ancef 2,000 MG In 100 / 100 Dextrose 5% 100 ML @ 200 mls/hr IVPB Q8HR MARY Rx#: [id number] Output: Estimated Blood Loss 15 / 15 Catheter 200 / 200 80 / 80 Other: Blood Glucose* 275 169 - Labs CBC & BMP: 10/28/16 09:37 10/28/16 06:38 Labs: Abnormal lab results WBC 19.2 K/mcL (4.3-11.1) H 10/28/16 06:38 RBC 3.14 M/mcL (3.82-4.97) L 10/28/16 06:38 Hgb 9.4 g/dL (11.5-15.4) L 10/28/16 09:37 Hct 30.5 % (35.3-44.9) L 10/28/16 09:37 MCHC 30.5 g/dL (31.6-35.5) L 10/28/16 06:38 Neutrophils # 16.9 K/mcL (1.6-8.9) H 10/28/16 06:38 Potassium 4.9 mEq/L (3.5-4.5) H 10/28/16 06:38 BUN 28 mg/dL (7-20) H D 10/28/16 06:38 Creatinine 1.80 mg/dL (0.57-1.11) H 10/28/16 06:38 Est GFR ( Amer) 32 (> 60) L 10/28/16 06:38 Est GFR (Non-Af Amer) 27 (> 60) L 10/28/16 06:38 Glucose 266 mg/dL (70-99) H 10/28/16 06:38 POC Glucose 169 (58-89) H 10/28/16 20:50 Hemoglobin A1c 6.7 % (-5.6) H 10/27/16 16:52 Calculated Osmolality 301 (280-300) H 10/28/16 06:38 Calcium 8.5 mg/dL (8.6-10.8) L 10/28/16 06:38 Urine Clarity Cloudy (Clear) A 10/28/16 20:00 Ur Specific [place] 1.028 (1.010-1.025) H 10/28/16 20:00 Urine Protein 100 mg/dL (Neg-Trace) H 10/28/16 20:00 Urine Ketones Trace mg/dL (Negative) H 10/28/16 20:00 Urine Blood Small (Negative) H 10/28/16 20:00 Ur Leukocyte Esterase Moderate (Negative) H 10/28/16 20:00 Urine Microscopic RBC 5-15 per hpf (0-3) H 10/28/16 20:00 Urine Microscopic WBC TNTC per hpf (0-3) H 10/28/16 20:00 Ur Squamous Epith Cells Moderate per lpf (None-Few) H 10/28/16 20:00 Urine Bacteria Many per hpf (None-Few) H 10/28/16 20:00 Consult Discharge Plan - Plan Referrals: NONE,PCP [Primary Care Provider] -
[2016-10-29 01:23] LABS: Hematocrit 29.3 % (35.3-44.9); Hemoglobin 9.3 g/dL (11.5-15.4); Mean Corpuscular HGB Conc 31.7 g/dL (31.6-35.5); Mean Corpuscular Hemoglobin 30.7 pg (28.0-33.3); Mean Corpuscular Volume 96.7 fL (83.0-100.0); Mean Platelet Volume 11.8 fL (9.4-12.4); Platelet Count 165 K/mcL (140-400); Red Blood Count 3.03 M/mcL (3.82-4.97); Red Cell Distribution Width 13.5 % (11.5-14.5)
[2016-10-29 01:39] LABS: Calcium 8.4 mg/dL (8.6-10.8); Magnesium 1.7 mg/dL (1.6-2.6); Phosphorous 3.1 mg/dL (2.3-4.7); Potassium 4.7 mEq/L (3.5-4.5)
[2016-10-29 02:05] LABS: Lymphocytes # 0.6 K/mcL (0.6-4.6); Monocytes # 1.2 K/mcL (0.0-1.3); Neutrophils # 18.3 K/mcL (1.6-8.9)
[2016-10-29 02:06] LABS: Basophilic Stippling 1+ (Not Present); Platelet Estimate Normal (Normal)
[2016-10-29] MEDS: *HR* Enoxaparin 30 MG/0.3 ML SYRINGE SQ SCH (04:25)
[2016-10-29] MEDS: Ondansetron 4 MG/2 ML VIAL IVP PRN (05:25)
[2016-10-29] MEDS: *HR* Promethazine 25 MG/ML VIAL IVP PRN ×3 (05:32→23:46)
[2016-10-29] MEDS: Aspirin Enteric Coated 81 MG Tablet PO SCH ×2 (07:26→08:25)
[2016-10-29] MEDS ORDERED: Vancomycin 1,500 MG in D5% in Water 250 ML IVPB ONE (07:57)
[2016-10-29] MEDS: Insulin LISPRO 300 UNITS/3 ML VIAL SQ SCH ×4 (08:19→22:19)
[2016-10-29] MEDS: Piperacillin/Tazobactam 3.375 GM in D5% in Water (Mini-Bag+) 100 ML IVPB SCH ×2 (08:19→20:04)
[2016-10-29] MEDS: Magnesium Oxide 400 MG TABLET PO SCH ×2 (08:26→20:02)
[2016-10-29] MEDS: Famotidine 20 MG TABLET PO SCH ×2 (08:26→20:02)
[2016-10-29] MEDS: Ringers Solution, Lactated 1,000 ML IVC SCH (08:26)
[2016-10-29] MEDS ORDERED: Metoprolol XL (24 HR) Succ 25 MG TAB.ER.24H PO SCH (09:00)
[2016-10-29] MEDS ORDERED: amLODIPine 5 MG TABLET PO SCH (09:00)
[2016-10-29] MEDS: *HR* Metoprolol 5 MG/5 ML VIAL IVP SCH ×3 (09:08→20:04)
--- NOTE | 2016-10-29 10:50 | Internal Med Progress Note ---
Date of Encounter: 10/29/16 Time of Encounter: 08:15 - Assessment and plan (1) Fracture, intertrochanteric, right femur Current Visit: No Status: Acute Assessment and plan: s/p right hip ORIM fixation (10/28/16)-POD 1 orthopedic evaluation appreciated DVT ppx with Enoxaparin SQ continue post op care as per ortho PT/OT eval when able Qualifiers: Encounter type: initial encounter Fracture type: closed Fracture alignment: displaced Qualified Code(s): S72.141A - Displaced intertrochanteric fracture of right femur, initial encounter for closed fracture (2) Radius distal fracture Current Visit: No Status: Acute Assessment and plan: splint in place pain control Qualifiers: Encounter type: initial encounter Fracture type: closed Fracture morphology: other intra-articular Laterality: right Qualified Code(s): S52.571A - Other intraarticular fracture of lower end of right radius, initial encounter for closed fracture (3) CAD (coronary artery disease) Current Visit: Yes Status: Chronic Assessment and plan: continue home medications (ASA, BB, statin) Qualifiers: Coronary Disease-Associated Artery/Lesion type: [place] artery [place] vs. 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 [facility]p insulin use status Qualified Code(s): E11.9 - Type 2 diabetes mellitus without complications (5) Hypertension Current Visit: Yes Status: Acute Assessment and plan: BP within acceptable range continue home medications Qualifiers: Hypertension type: essential hypertension Qualified Code(s): I10 - Essential (primary) hypertension (6) DVT prophylaxis Current Visit: Yes Status: Acute Assessment and plan: Lovenox SQ (7) Yvfks-cz-wkpigfo kidney injury Current Visit: Yes Status: Acute Assessment and plan: of unclear etiology renal function improved from previous day UA concerning for UTI will continue empiric IV abx and f/u urine cultures Qualifiers: Acute renal failure type: unspecified Chronic kidney disease stage: unspecified stage Qualified Code(s): N17.9 - Acute kidney failure, unspecified ; N18.9 - Chronic kidney disease, unspecified (8) Sepsis Current Visit: Yes Status: Acute Assessment and plan: Concern for aspiration PNA started empiric IV abx and IV fluids LA wnl started IV BB will maintain NPO at this time until mental status more awake and alert f/u blood cultures Qualifiers: Sepsis type: sepsis due to unspecified organism Qualified Code(s): A41.9 - Sepsis, unspecified organism (9) Aspiration pneumonia Current Visit: Yes Status: Acute Assessment and plan: as listed above Qualifiers: Laterality: unspecified laterality Lung location: unspecified part of lung Qualified Code(s): J69.0 - Pneumonitis due to inhalation of food and vomit - Subjective Interval history: Pt seen and examined with family at bedside. Patient post-op day # 1: right hip open reduction intramedullary nail fixation. Pt was noted to be lethargic, barely arousable, and tachycardic this morning. She was reported to have two episodes of vomiting overnight. Given elevated WBC , lethargic mental status, concern for aspiration pna. Will start empiric abx, NPO until mental status more awake and alert. Will start IV BB and d/c PO BB while NPO. - Constitutional Vitals: Temp Pulse Resp BP Pulse Ox 99.9 F H 134 15 134/85 99 10/29/16 07:55 10/29/16 07:55 10/29/16 07:55 10/29/16 07:55 10/29/16 07:55 General appearance: Present: A&O X 0 (lethargic, arousable to verbal stimuli), answers questions appropriately - Head Head exam: Present: atraumatic, normocephalic - Eye Eye exam: Present: conjuntiva pink, sclera anicteric - Respiratory Respiratory exam: Present: decreased breath sounds. Absent: respiratory distress, wheezes - Cardiovascular Cardiovascular exam: Present: +S1, +S2, tachycardia - GI/Abdominal GI/Abdominal exam: Present: normal bowel sounds, soft, no peritoneal signs. Absent: distended, tenderness - Extremities Exam Extremities exam: Present: warm, radial pulses palpable and symetrical. Absent : calf tenderness Internal Medicine: Result - Labs CBC & Chem 7: 10/29/16 00:59 10/29/16 00:59 Labs: Short CBC 10/28/16 10/29/16 Range/Units 09:37 00:59 WBC 20.1 H (4.3-11.1) K/mcL Hgb 9.4 L 9.3 L (11.5-15.4) g/dL Hct 30.5 L 29.3 L (35.3-44.9) % Plt Count 165 (140-400) K/mcL Neutrophils # 18.3 H (1.6-8.9) K/mcL BMP 10/29/16 00:59 Sodium 140 Potassium 4.7 H Chloride 108 Carbon Dioxide 24 BUN 37 H Creatinine 1.72 H Glucose 181 H Calcium 8.4 L Cardiac Enzymes 10/29/16 Range/Units 08:07 Troponin I 0.05 H* (0-0.03) ng/mL Urine 10/28/16 Range/Units 20:00 Urine Color Yellow (Yellow) Urine Clarity Cloudy A (Clear) Urine pH 5.5 (5.0-8.0) pH Units Ur Specific [place] 1.028 H (1.010-1.025) Urine Protein 100 H (Neg-Trace) mg/dL Urine Glucose (UA) Normal (Normal) mg/dL - ABG Interpretation ABG results: PT/INR, D-dimer PT 12.0 Seconds (9.4-12.1) 10/27/16 16:52 - Impressions Impressions Chest X-Ray 10/29/16 08:57 IMPRESSION: Minimal bibasilar opacification, which could represent atelectasis versus airspace disease. D/ / Marlo Johnson MD / Marlo Johnson MD Interpreting Provider: Marlo Johnson MD - VTE Documentation of Mechanical Device: Venous foot pump, device Consult Discharge Plan - Plan Referrals: NONE,PCP [Primary Care Provider] -
--- NOTE | 2016-10-29 11:19 | Cardiology Progress Note ---
Date of Encounter: 10/29/16 Time of Encounter: 09:15 Assessment and Plan (1) Fracture, intertrochanteric, right femur Current Visit: No Status: Acute Per Cardiology: Status post what appears to be mechanical fall. S/p surgery yesterday. Management per primary service. Qualifiers: Encounter type: initial encounter Fracture type: closed Fracture alignment: displaced Qualified Code(s): S72.141A - Displaced intertrochanteric fracture of right femur, initial encounter for closed fracture (2) Sepsis Current Visit: Yes Status: Acute Per Cardiology: On antibiotics. Management per primary service. Qualifiers: Sepsis type: sepsis due to unspecified organism Qualified Code(s): A41.9 - Sepsis, unspecified organism (3) Tachycardia Current Visit: Yes Status: Acute Per Cardiology: Re-consult for ST 130's. Suspect multifactorial-- concern for sepsis, pain, still not resuming home meds (Lopressor) d/t mental status. Now resolved and SR 70's - 80's with IV Lopressor. Recommend continue and resume PO when able. Will dc norvasc in case BB will need titrated. (4) CAD (coronary artery disease) Current Visit: Yes Status: Chronic Per Cardiology: Known history of CAD with CABG 4 [place] [address] Mckinnon. Reports no ischemic evaluation since bypass. 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 Resume home dose of asa, statin, BB when able to take home meds. Qualifiers: Coronary Disease-Associated Artery/Lesion type: [place] artery [place] vs. transplanted heart: [place] heart Associated angina: without angina Qualified Code(s): I25.10 - Atherosclerotic heart disease of [place] coronary artery without angina pectoris (5) Elevated troponin I measurement Current Visit: Yes Status: Acute Per Cardiology: Mild trop 0.05 in post op setting and tachycardia with concerns for possible sepsis. Do not suspect NSTEMI-- no cardiac rehabilitation consult warranted. Preop echo showed: Ef preserved 6065%, no significant valvular dysfunction, no pulmonary hypertension, NSWMA. Will follow trops, if any significant increase can consider repeat limited echo. Discussion w patient/family: The assessment and plan as outlined above was discussed with the patient and/or family members who expressed understanding and agreement. All questions were answered. Thank you for involving us in the care of your patient. Please call with any questions. Subjective Principal diagnosis: Tachycardia Interval history: Patient seen with son at bedside. Patient remains somewhat somnolent. Patient denied any chest pain, short of breath, or palpitations. Speech is somewhat garbled. Patient unable to state name, year, or location. She did open eyes to verbal stimuli. Positive MAE4 to verbal commands. Objective Vital Signs, Last 4 Hours Temp Pulse Resp BP Pulse Ox 10/29/16 07:55 99.9 F H 134 15 134/85 99 HEENT: Atraumatic, Normocephaly Cardiac: Normal S1 and S2, No Murmur, Other (Sinus tachycardia on telemetry in the 130s) Lungs: Normal Breath Sounds, No Wheeze, Rales, Rhonchi Neuro: Other (Opens eyes to verbal stimuli, answered a few simple verbal questions with yes or no, did not respond to person, place, time, positive movement of all extremity 4 to verbal commands) Abdomen: Soft, Non-Tender Skin: No rashes noted on visualized skin Musculoskeletal: No Chest Wall Tenderness Extremities: No Edema, Normal Pulses Results 10/29/16 00:59 10/29/16 00:59 Lab Results Laboratory Tests 10/27/16 10/28/16 10/29/16 16:52 20:00 00:59 WBC 17.6 H D 20.1 H Hgb 10.6 L 9.3 L Hct 33.2 L 29.3 L Creatinine Est GFR (Non-Af Amer) Magnesium Troponin I Ur Leukocyte Esterase Moderate H Ur Squamous Epith Cells Moderate H Urine Bacteria Many H 10/29/16 10/29/16 00:59 08:07 WBC Hgb Hct Creatinine 1.72 H Est GFR (Non-Af Amer) 28 L Magnesium 1.7 Troponin I 0.05 H* Ur Leukocyte Esterase Ur Squamous Epith Cells Urine Bacteria Impressions Chest X-Ray 10/29/16 08:57 IMPRESSION: Minimal bibasilar opacification, which could represent atelectasis versus airspace disease. D/ / Marlo Johnson MD / Marlo Johnson MD Interpreting Provider: Marlo Johnson MD Active Medications Acetaminophen (Tylenol) 650 mg PO Q6HR PRN PRN Reason: Mild Pain (1-3) Stop: 04/28/17 16:13 Hydrocodone Bitart/Acetaminophen ([place] 5-325 Mg) 1 tab PO Q4HR PRN PRN Reason: Moderate Pain (4-6) Stop: 04/28/17 16:13 Amlodipine Besylate (Norvasc) 5 mg PO DAILY MARY PRN Reason: Protocol Stop: 04/29/17 09:01 Last Admin: 10/29/16 08:26 Dose: Not Given Aspirin (Aspirin Ec) 162 mg PO DAILY [facility] Stop: 04/30/17 07:58 Last Admin: 10/29/16 08:25 Dose: Not Given Atorvastatin Calcium (Lipitor) 40 mg PO HS [facility] Stop: 04/28/17 21:01 Last Admin: 10/28/16 21:23 Dose: 40 mg Dextrose/Water (Dextrose 50% (Syg)) 25 ml IVP AD PRN PRN Reason: Hypoglycemia Stop: 04/28/17 19:12 Dextrose/Water (Dextrose 50% (Syg)) 25 ml IVP AD PRN PRN Reason: Hypoglycemia Stop: 04/29/17 13:59 Enoxaparin Sodium (Lovenox) 30 mg SQ 0600 [facility] PRN Reason: Protocol Stop: 04/29/17 06:01 Last Admin: 10/29/16 04:25 Dose: 30 mg Famotidine (Pepcid) 10 mg PO BID [facility] Stop: 04/28/17 21:01 Last Admin: 10/29/16 08:26 Dose: Not Given Glucagon (Glucagen) 1 mg IM ONCE PRN PRN Reason: Hypoglycemia Stop: 04/28/17 19:12 Glucagon (Glucagen) 1 mg IM ONCE PRN PRN Reason: Hypoglycemia Stop: 04/29/17 13:59 Glucose (Gluctose) 15 gm PO ONCE PRN PRN Reason: Hypoglycemia Stop: 04/28/17 19:12 Glucose (Gluctose) 30 gm PO ONCE PRN PRN Reason: Hypoglycemia Stop: 04/28/17 19:12 Glucose (Gluctose) 15 gm PO ONCE PRN PRN Reason: Hypoglycemia Stop: 04/29/17 13:59 Glucose (Gluctose) 30 gm PO ONCE PRN PRN Reason: Hypoglycemia Stop: 04/29/17 13:59 Hydromorphone HCl (Dilaudid) 1 mg IVP Q4HR PRN PRN Reason: Moderate to Severe Pain Stop: 04/29/17 09:39 Dextrose (Dextrose 5%) 1,000 mls @ 100 mls/hr IVC .Q10H PRN PRN Reason: HYPOGLYCEMIA Stop: 04/28/17 19:12 Lactated Ringer's (Lactated Ringers) 1,000 mls @ 25 mls/hr IVC .Q24H [facility] Stop: 04/29/17 07:23 Last Admin: 10/29/16 08:26 Dose: Not Given Dextrose (Dextrose 5%) 1,000 mls @ 100 mls/hr IVC .Q10H PRN PRN Reason: HYPOGLYCEMIA Stop: 04/29/17 13:59 Sodium Chloride (0.9 % Sodium Chloride) 1,000 mls @ 100 mls/hr IVC .Q10H [facility] Stop: 10/30/16 03:51 Last Admin: 10/29/16 08:18 Dose: 100 mls/hr Piperacillin Sod/Tazobactam (Sod 3.375 gm/ Dextrose) 100 mls @ 25 mls/hr IVPB Q12H [facility]ARY PRN Reason: Protocol Stop: 04/30/17 07:58 Last Admin: 10/29/16 08:19 Dose: 25 mls/hr Insulin Human Lispro (Humalog) 0 units SQ HS [facility] PRN Reason: Protocol Stop: 04/29/17 21:01 Last Admin: 10/28/16 21:23 Dose: Not Given Insulin Human Lispro (Humalog) 0 units SQ TIDAC [facility] PRN Reason: Protocol Stop: 04/28/17 19:16 Last Admin: 10/29/16 08:19 Dose: 6 units Magnesium Oxide (Mag-Ox) 400 mg PO BID [facility] PRN Reason: Protocol Stop: 04/28/17 21:01 Last Admin: 10/29/16 08:26 Dose: Not Given Metoprolol Tartrate (Lopressor) 5 mg IVP Q6H [facility] Stop: 04/30/17 08:29 Last Admin: 10/29/16 09:08 Dose: 5 mg Naloxone HCl (Narcan) 0.4 mg IVP Q2MIN PRN PRN Reason: Opioid Reversal Stop: 04/28/17 16:13 Ondansetron HCl (Zofran) 4 mg IVP Q8HR PRN PRN Reason: Nausea And Vomiting Stop: 04/28/17 16:13 Last Admin: 10/29/16 05:25 Dose: 4 mg Ondansetron HCl (Zofran Odt) 4 mg SL Q8HR PRN PRN Reason: Nausea And Vomiting Stop: 04/28/17 16:13 Potassium Chloride (Potassium Chloride) 20 meq PO DAILY MARY Stop: 04/29/17 09:01 Last Admin: 10/29/16 08:26 Dose: Not Given Promethazine HCl (Phenergan) 12.5 mg IVP Q6HR PRN PRN Reason: Nausea And Vomiting Stop: 04/28/17 16:13 Last Admin: 10/29/16 05:32 Dose: 12.5 mg Simvastatin (Zocor) 80 mg PO HS MARY PRN Reason: Protocol Stop: 04/29/17 21:01 Last Admin: 10/28/16 21:22 Dose: 80 mg Vancomycin HCl (Vancocin) 1 each IVPB AD PRN PRN Reason: dose will be based of levels Stop: 04/30/17 08:26 - Imaging and Cardiology Chest Xray: report reviewed - EKG Interpretation EKG results cardiology: personally reviewed (ST 130's, has underlying R BBB), other (Telemetry this morning showed sinus tachycardia in the 130s, currently sinus rhythm in the 80s) - VTE Documentation of Mechanical Device: Venous foot pump, device Consult Discharge Plan - Plan Referrals: NONE,PCP [Primary Care Provider] -
[2016-10-30] MEDS: 0.9 % Sodium Chloride 1,000 ML IVC SCH (00:05)
[2016-10-30] MEDS: *HR* Metoprolol 5 MG/5 ML VIAL IVP SCH ×3 (04:02→15:00)
[2016-10-30] MEDS: Ondansetron 4 MG/2 ML VIAL IVP PRN ×2 (04:06→19:36)
[2016-10-30] MEDS: *HR* Enoxaparin 30 MG/0.3 ML SYRINGE SQ SCH (05:38)
[2016-10-30 06:32] LABS: Basophils % 0.1 %; Hematocrit 27.4 % (35.3-44.9); Hemoglobin 8.7 g/dL (11.5-15.4); Immature Granulocytes % 0.4 % (0-4); Lymphocytes # 1.3 K/mcL (0.6-4.6); Lymphocytes % 8.4 %; Mean Corpuscular HGB Conc 31.8 g/dL (31.6-35.5); Mean Corpuscular Hemoglobin 30.5 pg (28.0-33.3); Mean Corpuscular Volume 96.1 fL (83.0-100.0); Mean Platelet Volume 11.7 fL (9.4-12.4); Monocytes % 6.3 %; Nucleated Red Blood Cells 0.4 /100 WBC (0); Platelet Count 168 K/mcL (140-400); Red Blood Count 2.85 M/mcL (3.82-4.97); Red Cell Distribution Width 13.9 % (11.5-14.5); Segmented Neutrophils % 84.8 %
[2016-10-30 06:37] LABS: Neutrophils # 13.1 K/mcL (1.6-8.9)
[2016-10-30] MEDS ORDERED: Furosemide 20 MG/2 ML VIAL IVP ONE ×2 (06:39→15:14)
--- NOTE | 2016-10-30 06:42 | Orthopedics Progress Note ---
Date of Encounter: 10/30/16 Time of Encounter: 06:40 Subjective Principal diagnosis: Tachycardia Interval history: Patient was seen this morning lethargic Afebrile vital signs stable. Operative extremity: Neurovascularly intact Dressing clean dry and intact Calves nontender Assessment and plan: Continue with postoperative care Hemoglobin 8.7 transfuse 1 unit ortho stable for dischargenit Objective Vital signs: Vital Signs Temp Pulse Resp BP Pulse Ox 10/30/16 04:14 98.4 F 83 24 170/77 99 10/30/16 00:28 97.5 F L 94 18 163/76 100 10/29/16 19:47 99.1 F 96 17 154/63 98 10/29/16 16:02 97.6 F 69 19 146/110 99 10/29/16 11:36 99.0 F 83 18 131/54 100 10/29/16 07:55 99.9 F H 134 15 134/85 99 Intake and Output 10/29/16 10/29/16 10/30/16 15:59 23:59 07:59 Intake Total 100 / 100 1000 / 1000 430 / 430 Output Total 725 / 725 350 / 350 Balance 100 / 100 275 / 275 80 / 80 Intake: IV Fluids 100 / 100 1000 / 1000 430 / 430 0.9 % Sodium Chloride 1, 1000 / 1000 430 / 430 000 ML @ 100 mls/hr IVC . Q10H MARY Rx#:[id number] Zosyn 3.375 GM In 100 / 100 Dextrose 5% (Minibag+) 100 ML 100 ML @ 25 mls/hr IVPB Q12H MARY Rx#: [id number] Output: Catheter 725 / 725 350 / 350 Other: Weight 74.18 kg Blood Glucose* 227 90 155 Patient Weight 10/30/16 23:59 Weight 74.18 kg - Labs CBC & BMP: 10/30/16 06:11 10/29/16 00:59 Labs: Abnormal lab results WBC 15.4 K/mcL (4.3-11.1) H 10/30/16 06:11 RBC 2.85 M/mcL (3.82-4.97) L 10/30/16 06:11 Hgb 8.7 g/dL (11.5-15.4) L 10/30/16 06:11 Hct 27.4 % (35.3-44.9) L 10/30/16 06:11 Band Neutrophils % 28.0 % (0-4) H 10/29/16 00:59 Neutrophils # 18.3 K/mcL (1.6-8.9) H 10/29/16 00:59 Nucleated RBCs/100 WBC 0.4 /100 WBC (0) H 10/30/16 06:11 Basophilic Stippling 1+ (Not Present) A 10/29/16 00:59 Potassium 4.7 mEq/L (3.5-4.5) H 10/29/16 00:59 BUN 37 mg/dL (7-20) H 10/29/16 00:59 Creatinine 1.72 mg/dL (0.57-1.11) H 10/29/16 00:59 Est GFR ( Amer) 34 (> 60) L 10/29/16 00:59 Est GFR (Non-Af Amer) 28 (> 60) L 10/29/16 00:59 Glucose 181 mg/dL (70-99) H 10/29/16 00:59 POC Glucose 155 (58-89) H 10/30/16 05:42 Hemoglobin A1c 6.7 % (-5.6) H 10/27/16 16:52 Calculated Osmolality 303 (280-300) H 10/29/16 00:59 Calcium 8.4 mg/dL (8.6-10.8) L 10/29/16 00:59 Troponin I 0.05 ng/mL (0-0.03) H* 10/29/16 21:02 Urine Clarity Cloudy (Clear) A 10/28/16 20:00 Ur Specific [place] 1.028 (1.010-1.025) H 10/28/16 20:00 Urine Protein 100 mg/dL (Neg-Trace) H 10/28/16 20:00 Urine Ketones Trace mg/dL (Negative) H 10/28/16 20:00 Urine Blood Small (Negative) H 10/28/16 20:00 Ur Leukocyte Esterase Moderate (Negative) H 10/28/16 20:00 Urine Microscopic RBC 5-15 per hpf (0-3) H 10/28/16 20:00 Urine Microscopic WBC TNTC per hpf (0-3) H 10/28/16 20:00 Ur Squamous Epith Cells Moderate per lpf (None-Few) H 10/28/16 20:00 Urine Bacteria Many per hpf (None-Few) H 10/28/16 20:00 - VTE Documentation of Mechanical Device: Venous foot pump, device Consult Discharge Plan - Plan Referrals: NONE,PCP [Primary Care Provider] -
[2016-10-30 06:43] LABS: Calcium 8.3 mg/dL (8.6-10.8); Magnesium 1.5 mg/dL (1.6-2.6); Phosphorous 1.9 mg/dL (2.3-4.7)
[2016-10-30 07:01] LABS: Platelet Estimate Normal (Normal); Polychromasia 1+ (Not Present)
[2016-10-30] MEDS ORDERED: Magnesium Sulfate 1 GM in D5% in Water 100 ML IVPB ONE (07:53)
[2016-10-30] MEDS: Piperacillin/Tazobactam 3.375 GM in D5% in Water (Mini-Bag+) 100 ML IVPB SCH ×2 (08:02→19:37)
[2016-10-30] MEDS: Insulin LISPRO 300 UNITS/3 ML VIAL SQ SCH ×4 (08:26→22:15)
[2016-10-30] MEDS: Famotidine 20 MG TABLET PO SCH ×2 (08:28→22:14)
[2016-10-30] MEDS: Aspirin Enteric Coated 81 MG Tablet PO SCH (08:28)
[2016-10-30] MEDS: Magnesium Oxide 400 MG TABLET PO SCH ×2 (08:28→22:13)
[2016-10-30] MEDS: *HR* Promethazine 25 MG/ML VIAL IVP PRN (08:29)
--- NOTE | 2016-10-30 08:54 | Internal Med Progress Note ---
Date of Encounter: 10/30/16 Time of Encounter: 08:52 - Assessment and plan (1) Fracture, intertrochanteric, right femur Current Visit: No Status: Acute Assessment and plan: s/p right hip ORIM fixation (10/28/16)-POD # 2 orthopedic evaluation appreciated DVT ppx with Enoxaparin SQ continue post op care as per ortho PT/OT eval when able Qualifiers: Encounter type: initial encounter Fracture type: closed Fracture alignment: displaced Qualified Code(s): S72.141A - Displaced intertrochanteric fracture of right femur, initial encounter for closed fracture (2) Radius distal fracture Current Visit: No Status: Acute Assessment and plan: splint in place pain control Qualifiers: Encounter type: initial encounter Fracture type: closed Fracture morphology: other intra-articular Laterality: right Qualified Code(s): S52.571A - Other intraarticular fracture of lower end of right radius, initial encounter for closed fracture (3) CAD (coronary artery disease) Current Visit: Yes Status: Chronic Assessment and plan: continue home medications (ASA, BB, statin) Qualifiers: Coronary Disease-Associated Artery/Lesion type: [place] artery [place] vs. 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 Qualified Code(s): E11.9 - Type 2 diabetes mellitus without complications (5) Hypertension Current Visit: Yes Status: Acute Assessment and plan: BP within acceptable range continue home medications Qualifiers: Hypertension type: essential hypertension Qualified Code(s): I10 - Essential (primary) hypertension (6) DVT prophylaxis Current Visit: Yes Status: Acute Assessment and plan: Lovenox SQ (7) [id number] kidney injury Current Visit: Yes Status: Acute Assessment and plan: of unclear etiology renal function improved from previous day UA concerning for UTI will continue empiric IV abx and f/u urine cultures Qualifiers: Acute renal failure type: unspecified Chronic kidney disease stage: unspecified stage Qualified Code(s): N17.9 - Acute kidney failure, unspecified ; N18.9 - Chronic kidney disease, unspecified (8) Sepsis Current Visit: Yes Status: Acute Assessment and plan: Concern for aspiration PNA continue empiric IV abx and IV fluids f/u speech therapy evaluation and restart PO diet as per their recommendations maintain aspiration precautions f/u blood cultures Qualifiers: Sepsis type: sepsis due to unspecified organism Qualified Code(s): A41.9 - Sepsis, unspecified organism (9) Aspiration pneumonia Current Visit: Yes Status: Acute Assessment and plan: as listed above Qualifiers: Laterality: unspecified laterality Lung location: unspecified part of lung Qualified Code(s): J69.0 - Pneumonitis due to inhalation of food and vomit - Subjective Interval history: Pt seen and examined with family at bedside. Patient post-op day # 2: right hip open reduction intramedullary nail fixation. Pt remains somnolent however easily arousable. Follows commands and able to communicate. Denies any pain but reports of nausea and feeling weak. No overnight issues reported. - Constitutional Vitals: Temp Pulse Resp BP Pulse Ox 99.9 F H 98 18 154/80 99 10/30/16 08:00 10/30/16 08:00 10/30/16 08:00 10/30/16 08:00 10/30/16 08:00 General appearance: Present: A&O X 3 (somnolent but easily arousable ), no acute distress - Head Head exam: Present: atraumatic, normocephalic - Eye Eye exam: Present: conjuntiva pink, sclera anicteric - Respiratory Respiratory exam: Present: decreased breath sounds. Absent: accessory muscle use, rales, rhonchi, wheezes - Cardiovascular Cardiovascular exam: Present: RRR, +S1, +S2. Absent: diastolic murmur, gallop, rubs, systolic murmur - GI/Abdominal GI/Abdominal exam: Present: normal bowel sounds, soft, no peritoneal signs. Absent: distended, tenderness - Extremities Exam Extremities exam: Present: warm, radial pulses palpable and symetrical. Absent : calf tenderness - Neurological Exam Neurological exam: Present: alert Internal Medicine: Result - Labs CBC & Chem 7: 10/30/16 06:11 10/30/16 06:11 Labs: Short CBC 07/31/17 Range/Units 06:11 WBC 15.4 H (4.3-11.1) K/mcL Hgb 8.7 L (11.5-15.4) g/dL Hct 27.4 L (35.3-44.9) % Plt Count 168 (140-400) K/mcL Neutrophils # 13.1 H (1.6-8.9) K/mcL BMP 10/30/16 06:11 Sodium 142 Potassium 4.0 Chloride 111 H Carbon Dioxide 20 BUN 36 H Creatinine 1.29 H Glucose 168 H Calcium 8.3 L Cardiac Enzymes 10/29/16 10/29/16 Range/Units 14:01 21:02 Troponin I 0.03 0.05 H* (0-0.03) ng/mL - ABG Interpretation ABG results: PT/INR, D-dimer PT 12.0 Seconds (9.4-12.1) 10/27/16 16:52 - Impressions Impressions Fluoroscopy 10/28/16 00:00 IMPRESSION: Intraprocedural fluoroscopic spot images as above. See separate procedure report for more information. D/ / 10/28/2016 09:11:59 Lilian Gonzalez MD / Laila Lange Interpreting Provider: Lilian Gonzalez MD Chest X-Ray 10/29/16 08:57 IMPRESSION: Minimal bibasilar opacification, which could represent atelectasis versus airspace disease. D/ / Marlo Johnson MD / Marlo Johnson MD Interpreting Provider: Marlo Johnson MD - VTE Documentation of Mechanical Device: Venous foot pump, device Consult Discharge Plan - Plan Referrals: NONE,PCP [Primary Care Provider] -
[2016-10-30] MEDS ORDERED: Vancomycin 1,500 MG in D5% in Water 250 ML IVPB ONE (09:00)
[2016-10-30] MEDS: Ringers Solution, Lactated 1,000 ML IVC SCH ×2 (09:38→22:12)
--- NOTE | 2016-10-30 10:22 | Event Note ---
Date of Encounter: 10/30/16 Time of Encounter: 10:20 Right Hip: NWB RLE, No hip ROM, Hip precautions Right Wrist: NWB RUE, Short Arm Cast placed, ICE and elevate upper extremity. Focus on finger range of motion exercises* F/up in office in 2 weeks for xrays and wound check*
[2016-10-30] MEDS ORDERED: 0.9 % Sodium Chloride 250 ML ONE (11:32)
[2016-10-30] MEDS ORDERED: *HR* Promethazine 25 MG/ML VIAL IVP PRN (11:35)
--- NOTE | 2016-10-30 13:52 | Cardiology Progress Note ---
Date of Encounter: 10/30/16 Time of Encounter: 10:30 Assessment and Plan (1) Fracture, intertrochanteric, right femur Current Visit: No Status: Acute Per Cardiology: Status post what appears to be mechanical fall. S/p surgery. Management per primary service. Qualifiers: Encounter type: initial encounter Fracture type: closed Fracture alignment: displaced Qualified Code(s): S72.141A - Displaced intertrochanteric fracture of right femur, initial encounter for closed fracture (2) Sepsis Current Visit: Yes Status: Acute Per Cardiology: On antibiotics. Management per primary service. Qualifiers: Sepsis type: sepsis due to unspecified organism Qualified Code(s): A41.9 - Sepsis, unspecified organism (3) Tachycardia Current Visit: Yes Status: Acute Per Cardiology: Suspect multifactorial-- concern for sepsis, pain, still not resuming home meds (Lopressor) d/t mental status and nausea with vomiting. Now resolved and SR 70' s - 80's with IV Lopressor. Recommend continue and resume PO when able. Off norvasc in case BB will need titrated. Magnesium being replaced by primary service. Receiving blood transfusion for anemia. Anticipate heart rate will improve with improvement with underlying causes. Again recommend resumption of by mouth medications when able. Continue with IV Lopressor 5 mg every 6 hours. Discussed and reviewed with Dr. Austin Giraldo, cardiology will sign off, reconsult as needed, follow up as outpatient already scheduled. (4) CAD (coronary artery disease) Current Visit: Yes Status: Chronic Per Cardiology: Known history of CAD with CABG 4 [place] [address] Mckinnon. Reports no ischemic evaluation since bypass. Does not have a primary non destructive tester-- has f/ u with [facility] after DC. Resume home dose of asa, statin, BB when able to take home meds. Qualifiers: Coronary Disease-Associated Artery/Lesion type: [place] artery [place] vs. transplanted heart: [place] heart Associated angina: without angina Qualified Code(s): I25.10 - Atherosclerotic heart disease of [place] coronary artery without angina pectoris (5) Elevated troponin I measurement Current Visit: Yes Status: Acute Per Cardiology: Mild trop 0.05, 0.03, 0.05 in post op setting and tachycardia with concerns for possible sepsis, tachycardia, anemia. Do not suspect NSTEMI. Preop echo showed: Ef preserved 6065%, no significant valvular dysfunction, no pulmonary hypertension, NSWMA. Discussed and reviewed with Dr. Austin Giraldo, no further cardiac recommendations at this time. Will follow-up as outpatient. Discussion w patient/family: The assessment and plan as outlined above was discussed with the patient and/or family members who expressed understanding and agreement. All questions were answered. Thank you for involving us in the care of your patient. Please call with any questions. Subjective Principal diagnosis: Tachycardia Interval history: Patient seen with son at bedside. Patient remains somewhat somnolent. Patient denied any chest pain, short of breath, or palpitations. Speech is somewhat garbled. Patient alert to person and time. Unable to provide location. Positive nausea and dry heaving noted. Objective Vital Signs, Last 4 Hours Temp Pulse Resp BP Pulse Ox 10/30/16 12:05 98.7 F 86 17 98 10/30/16 11:50 98.2 F 94 16 110/60 98 HEENT: Atraumatic, Normocephaly Cardiac: Reg Rate and Rhythm, Normal S1 and S2, No Murmur Lungs: Normal Breath Sounds, No Wheeze, Rales, Rhonchi Neuro: Alert and responsive, No focal deficits noted Extremities: No Edema Results 10/30/16 06:11 10/30/16 06:11 Lab Results Laboratory Tests 10/27/16 10/29/16 10/29/16 16:52 08:07 14:01 Hgb 10.6 L Hct 33.2 L Magnesium Troponin I 0.05 H* 0.03 10/29/16 10/30/16 10/30/16 21:02 06:11 06:11 Hgb 8.7 L Hct 27.4 L Magnesium 1.5 L Troponin I 0.05 H* Impressions Fluoroscopy 10/28/16 00:00 IMPRESSION: Intraprocedural fluoroscopic spot images as above. See separate procedure report for more information. D/ / 10/28/2016 09:11:59 Lilian Gonzalez MD / Laila Lange Interpreting Provider: Lilian Gonzalez MD Active Medications Acetaminophen (Tylenol) 650 mg PO Q6HR PRN PRN Reason: Mild Pain (1-3) Stop: 04/28/17 16:13 Hydrocodone Bitart/Acetaminophen ([place] 5-325 Mg) 1 tab PO Q4HR PRN PRN Reason: Moderate Pain (4-6) Stop: 04/28/17 16:13 Aspirin (Aspirin Ec) 162 mg PO DAILY [facility] Stop: 04/30/17 07:58 Last Admin: 10/30/16 08:28 Dose: Not Given Atorvastatin Calcium (Lipitor) 40 mg PO HS [facility] Stop: 04/28/17 21:01 Last Admin: 10/29/16 20:02 Dose: Not Given Dextrose/Water (Dextrose 50% (Syg)) 25 ml IVP AD PRN PRN Reason: Hypoglycemia Stop: 04/28/17 19:12 Dextrose/Water (Dextrose 50% (Syg)) 25 ml IVP AD PRN PRN Reason: Hypoglycemia Stop: 04/29/17 13:59 Enoxaparin Sodium (Lovenox) 30 mg SQ 0600 [facility] PRN Reason: Protocol Stop: 04/29/17 06:01 Last Admin: 10/30/16 05:38 Dose: 30 mg Famotidine (Pepcid) 10 mg PO BID [facility] Stop: 04/28/17 21:01 Last Admin: 10/30/16 08:28 Dose: Not Given Glucagon (Glucagen) 1 mg IM ONCE PRN PRN Reason: Hypoglycemia Stop: 04/28/17 19:12 Glucagon (Glucagen) 1 mg IM ONCE PRN PRN Reason: Hypoglycemia Stop: 04/29/17 13:59 Glucose (Gluctose) 15 gm PO ONCE PRN PRN Reason: Hypoglycemia Stop: 04/28/17 19:12 Glucose (Gluctose) 30 gm PO ONCE PRN PRN Reason: Hypoglycemia Stop: 04/28/17 19:12 Glucose (Gluctose) 15 gm PO ONCE PRN PRN Reason: Hypoglycemia Stop: 04/29/17 13:59 Glucose (Gluctose) 30 gm PO ONCE PRN PRN Reason: Hypoglycemia Stop: 04/29/17 13:59 Hydralazine HCl (Hydralazine) 10 mg IVP Q6HR PRN PRN Reason: SBP>150 Stop: 05/01/17 07:56 Hydromorphone HCl (Dilaudid) 1 mg IVP Q4HR PRN PRN Reason: Moderate to Severe Pain Stop: 04/29/17 09:39 Dextrose (Dextrose 5%) 1,000 mls @ 100 mls/hr IVC .Q10H PRN PRN Reason: HYPOGLYCEMIA Stop: 04/28/17 19:12 Lactated Ringer's (Lactated Ringers) 1,000 mls @ 25 mls/hr IVC .Q24H [facility] Stop: 04/29/17 07:23 Last Admin: 10/30/16 09:38 Dose: Not Given Dextrose (Dextrose 5%) 1,000 mls @ 100 mls/hr IVC .Q10H PRN PRN Reason: HYPOGLYCEMIA Stop: 04/29/17 13:59 Piperacillin Sod/Tazobactam (Sod 3.375 gm/ Dextrose) 100 mls @ 25 mls/hr IVPB Q12H [facility] PRN Reason: Protocol Stop: 04/30/17 07:58 Last Infusion: 10/30/16 11:54 Dose: Infused Insulin Human Lispro (Humalog) 0 units SQ HS [facility] PRN Reason: Protocol Stop: 04/29/17 21:01 Last Admin: 10/29/16 22:19 Dose: Not Given Insulin Human Lispro (Humalog) 0 units SQ TIDAC [facility] PRN Reason: Protocol Stop: 04/28/17 19:16 Last Admin: 10/30/16 12:06 Dose: 8 units Magnesium Oxide (Mag-Ox) 400 mg PO BID [facility] PRN Reason: Protocol Stop: 04/28/17 21:01 Last Admin: 10/30/16 08:28 Dose: Not Given Metoprolol Tartrate (Lopressor) 5 mg IVP Q6H [facility] Stop: 04/30/17 08:29 Last Admin: 10/30/16 08:02 Dose: 5 mg Naloxone HCl (Narcan) 0.4 mg IVP Q2MIN PRN PRN Reason: Opioid Reversal Stop: 04/28/17 16:13 Ondansetron HCl (Zofran) 4 mg IVP Q8HR PRN PRN Reason: Nausea And Vomiting Stop: 04/28/17 16:13 Last Admin: 10/30/16 04:06 Dose: 4 mg Ondansetron HCl (Zofran Odt) 4 mg SL Q8HR PRN PRN Reason: Nausea And Vomiting Stop: 01/27/18 16:13 Potassium Chloride (Potassium Chloride) 20 meq PO DAILY MARY Stop: 04/29/17 09:01 Last Admin: 10/30/16 08:28 Dose: Not Given Promethazine HCl (Phenergan) 12.5 mg IVP Q6HR PRN PRN Reason: Nausea And Vomiting Stop: 04/28/17 16:13 Last Admin: 10/30/16 08:29 Dose: 12.5 mg Promethazine HCl (Phenergan) 12.5 mg IVP ONCE PRN PRN Reason: nausea Stop: 05/01/17 11:36 Last Admin: 10/30/16 11:57 Dose: 12.5 mg Simvastatin (Zocor) 80 mg PO HS MARY PRN Reason: Protocol Stop: 04/29/17 21:01 Last Admin: 10/29/16 20:03 Dose: Not Given Vancomycin HCl (Vancocin) 1 each IVPB AD PRN PRN Reason: dose will be based of levels Stop: 04/30/17 08:26 - EKG Interpretation EKG results cardiology: other (Telemetry reviewed with average heart rate the past 12 hours 90, currently sinus rhythm in the 90s. Brief episodes of atrial tachycardia/sinus tachycardia noted this a.m. as well.) - VTE Documentation of Mechanical Device: Venous foot pump, device Consult Discharge Plan - Plan Referrals: NONE,PCP [Primary Care Provider] -
--- NOTE | 2016-10-30 17:03 | Electrocardiograph Report ---
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
--- NOTE | 2016-10-30 17:03 | Electrocardiograph Report ---
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
--- NOTE | 2016-10-30 17:04 | Electrocardiograph Report ---
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
[2016-10-30] MEDS: Acetaminophen 325 MG TABLET PO PRN (22:12)
[2016-10-31] MEDS: *HR* Promethazine 25 MG/ML VIAL IVP PRN ×3 (02:14→22:45)
[2016-10-31] MEDS: *HR* Enoxaparin 30 MG/0.3 ML SYRINGE SQ SCH (06:10)
[2016-10-31] MEDS: Ondansetron 4 MG/2 ML VIAL IVP PRN ×2 (09:30→17:33)
[2016-10-31] MEDS: Piperacillin/Tazobactam 3.375 GM in D5% in Water (Mini-Bag+) 100 ML IVPB SCH (09:30)
[2016-10-31] MEDS: Insulin LISPRO 300 UNITS/3 ML VIAL SQ SCH ×4 (09:31→20:49)
[2016-10-31 09:42] LABS: Calcium 8.3 mg/dL (8.6-10.8); Potassium 3.6 mEq/L (3.5-4.5)
[2016-10-31] MEDS: Ringers Solution, Lactated 1,000 ML IVC SCH ×2 (09:43→09:54)
[2016-10-31 09:46] LABS: Hematocrit 28.8 % (35.3-44.9); Hemoglobin 9.4 g/dL (11.5-15.4); Mean Corpuscular HGB Conc 32.6 g/dL (31.6-35.5); Mean Corpuscular Hemoglobin 30.1 pg (28.0-33.3); Mean Corpuscular Volume 92.3 fL (83.0-100.0); Mean Platelet Volume 11.9 fL (9.4-12.4); Platelet Count 163 K/mcL (140-400); Red Blood Count 3.12 M/mcL (3.82-4.97); Red Cell Distribution Width 14.9 % (11.5-14.5)
--- NOTE | 2016-10-31 12:21 | Orthopedics Progress Note ---
Date of Encounter: 10/31/16 Time of Encounter: 12:20 Subjective Principal diagnosis: Fall Interval history: POD#3 R2ight Hip IM nailing 10/28/16 - Dressing c/d/i. No erythema noted. Calf non-tender Continue empiric antibiotics per hospitalist due to concern for aspiration PNA. Stable from orthopedic standpoint Right Hip: NWB RLE, No hip ROM, Hip precautions Right Wrist: NWB RUE, Short Arm Cast placed, ICE and elevate upper extremity. Focus on finger range of motion exercises* F/up in office in 2 weeks for xrays and wound check Objective Vital signs: Vital Signs Temp Pulse Resp BP Pulse Ox 10/31/16 11:53 97.4 F L 77 18 179/78 98 10/31/16 08:14 98.7 F 80 20 161/67 99 10/31/16 04:58 98.2 F 77 20 143/77 98 10/31/16 00:12 98.5 F 71 19 123/74 97 10/30/16 23:20 98 10/30/16 22:20 87 16 159/68 98 10/30/16 19:58 98.0 F 89 20 99 10/30/16 17:14 98.4 F 90 18 160/72 98 10/30/16 15:11 78 152/66 10/30/16 14:45 98.4 F 99 14 158/75 93 Intake and Output 10/30/16 10/31/16 10/31/16 23:59 07:59 15:59 Intake Total 125 / 125 75 / 75 1120 / 1120 Output Total 1300 / 1300 550 / 550 Balance -1175 / -1175 75 / 75 570 / 570 Intake: IV Fluids 100 / 100 1000 / 1000 Lactated Ringers 1,000 ML 1000 / 1000 @ 75 mls/hr IVC .[id number] MARY Rx#:[id number] Zosyn 3.375 GM In 100 / 100 Dextrose 5% (Minibag+) 100 ML 100 ML @ 25 mls/hr IVPB Q12H MARY Rx#: [id number] Oral 25 / 25 75 / 75 120 / 120 Output: Catheter 1300 / 1300 550 / 550 Other: Meal Breakfast Percent of Meal Consumed 5% Stool Size Smear Stool Consistency loose Stool Color Brown Blood Glucose* 171 236 - Labs CBC & BMP: 10/31/16 08:42 08/01/17 08:42 Labs: Abnormal lab results WBC 19.0 K/mcL (4.3-11.1) H 10/31/16 08:42 RBC 3.12 M/mcL (3.82-4.97) L 10/31/16 08:42 Hgb 9.4 g/dL (11.5-15.4) L 10/31/16 08:42 Hct 28.8 % (35.3-44.9) L 10/31/16 08:42 RDW 14.9 % (11.5-14.5) H 10/31/16 08:42 Band Neutrophils % 28.0 % (0-4) H 10/29/16 00:59 Neutrophils # 13.1 K/mcL (1.6-8.9) H 10/30/16 06:11 Nucleated RBCs/100 WBC 0.4 /100 WBC (0) H 10/30/16 06:11 Polychromasia 1+ (Not Present) A 10/30/16 06:11 Basophilic Stippling 1+ (Not Present) A 10/29/16 00:59 BUN 46 mg/dL (7-20) H D 10/31/16 08:42 Creatinine 1.40 mg/dL (0.57-1.11) H 10/31/16 08:42 Est GFR ( Amer) 43 (> 60) L 10/31/16 08:42 Est GFR (Non-Af Amer) 36 (> 60) L 10/31/16 08:42 BUN/Creatinine Ratio 33 (6-26) H 10/31/16 08:42 Glucose 206 mg/dL (70-99) H 10/31/16 08:42 POC Glucose 171 (58-89) H 10/30/16 21:28 Hemoglobin A1c 6.7 % (-5.6) H 10/27/16 16:52 Calculated Osmolality 308 (280-300) H 10/31/16 08:42 Calcium 8.3 mg/dL (8.6-10.8) L 10/31/16 08:42 Phosphorus 1.9 mg/dL (2.3-4.7) L 10/30/16 06:11 Magnesium 1.5 mg/dL (1.6-2.6) L 10/30/16 06:11 Troponin I 0.05 ng/mL (0-0.03) H* 10/29/16 21:02 Urine Clarity Cloudy (Clear) A 10/28/16 20:00 Ur Specific [place] 1.028 (1.010-1.025) H 10/28/16 20:00 Urine Protein 100 mg/dL (Neg-Trace) H 10/28/16 20:00 Urine Ketones Trace mg/dL (Negative) H 10/28/16 20:00 Urine Blood Small (Negative) H 10/28/16 20:00 Ur Leukocyte Esterase Moderate (Negative) H 10/28/16 20:00 Urine Microscopic RBC 5-15 per hpf (0-3) H 10/28/16 20:00 Urine Microscopic WBC TNTC per hpf (0-3) H 10/28/16 20:00 Ur Squamous Epith Cells Moderate per lpf (None-Few) H 10/28/16 20:00 Urine Bacteria Many per hpf (None-Few) H 10/28/16 20:00 Vancomycin Trough 22.2 mcg/mL (10-20) H* 10/31/16 05:15 - VTE Documentation of Mechanical Device: Venous foot pump, device Consult Discharge Plan - Plan Referrals: NONE,PCP [Primary Care Provider] -
--- NOTE | 2016-10-31 13:18 | Internal Med Progress Note ---
<Adrienne Thornton - Last Filed: 10/31/16 18:40> Date of Encounter: 10/31/16 Time of Encounter: 13:14 - Assessment and plan (1) Fracture, intertrochanteric, right femur Current Visit: No Status: Acute Assessment and plan: s/p right hip ORIM fixation (10/28/16)-POD # 3 orthopedic evaluation appreciated DVT ppx with Enoxaparin SQ continue post op care as per ortho PT/OT evaluation today suggests skilled rehab Plan: -Continue PT/OT while inpatient -Pain control -Placement in SNF per SW Qualifiers: Encounter type: initial encounter Fracture type: closed Fracture alignment: displaced Qualified Code(s): S72.141A - Displaced intertrochanteric fracture of right femur, initial encounter for closed fracture (2) Radius distal fracture Current Visit: No Status: Acute Assessment and plan: splint in place pain control Qualifiers: Encounter type: initial encounter Fracture type: closed Fracture morphology: other intra-articular Laterality: right Qualified Code(s): S52.571A - Other intraarticular fracture of lower end of right radius, initial encounter for closed fracture (3) Awnmz-rg-lsmcajh kidney injury Current Visit: Yes Status: Acute Assessment and plan: Unclear etiology; renal function improved and seems to be at baseline UA concerning for UTI, currently on Zosyn and vanc (Day 3). Plan: -de-escalate coverage and switch to PO abx for treatment of UTI Qualifiers: Acute renal failure type: unspecified Chronic kidney disease stage: unspecified stage Qualified Code(s): N17.9 - Acute kidney failure, unspecified ; N18.9 - Chronic kidney disease, unspecified (4) CAD (coronary artery disease) Current Visit: Yes Status: Chronic Assessment and plan: continue home medications (ASA, BB, statin) Qualifiers: Coronary Disease-Associated Artery/Lesion type: [place] artery [place] vs. transplanted heart: [place] heart Associated angina: without angina Qualified Code(s): I25.10 - Atherosclerotic heart disease of [place] coronary artery without angina pectoris (5) Diabetes mellitus Current Visit: Yes Status: Acute Assessment and plan: closely monitor fingerstick and blood glucose sliding scale insulin as needed ADA diet accuchecks q6h while NPO, ACHS when able to tolerate PO intake Qualifiers: Diabetes mellitus type: type 2 Diabetes mellitus complication status: without complication Diabetes mellitus nursing home insulin use: unspecified termination clerk insulin use status Qualified Code(s): E11.9 - Type 2 diabetes mellitus without complications (6) Hypertension Current Visit: Yes Status: Acute Assessment and plan: BP elevated overnight, patient was unable to take PO BP meds until this afternoon, will monitor Qualifiers: Hypertension type: essential hypertension Qualified Code(s): I10 - Essential (primary) hypertension (7) Sepsis Current Visit: Yes Status: Acute Assessment and plan: Concern for aspiration PNA and empiric IV abx were started. Patient remains afebrile, WBC stable. Speech therapy evaluation: mechanically altered diet with pills in pureed. Blood cultures show no growth to date Patient had episode of tachycardia overnight and LR was started at 75/hr. Patient HR currently stable, beginning to appear fluid overloaded. Plan: -Stop LR -Will stop abx Qualifiers: Sepsis type: sepsis due to unspecified organism Qualified Code(s): A41.9 - Sepsis, unspecified organism (8) Nausea & vomiting Current Visit: Yes Status: Acute Assessment and plan: Patient has been nauseated and vomiting off and on all day. Was controlled with zofran and phenergan. This evening she is vomiting despite zofran administration. Tenderness with abdominal palpation and tachycardia in the 140s during exam. Plan: -Continue anti-emetics -hold opioid pain meds Qualifiers: Vomiting type: unspecified Vomiting Intractability: unspecified Qualified Code(s): R11.2 - Nausea with vomiting, unspecified (9) DVT prophylaxis Current Visit: Yes Status: Acute Assessment and plan: Lovenox SQ - Subjective Interval history: Patient seen and examined. She arouses to voice and follows commands. She denies any chest pain, sob or pain today. She had some tachycardia overnight which has resolved this morning. She has had difficulty swallowing this morning and did not receive her BP pills. Speech has evaluated her and has cleared her to take her pills in applesauce. - Constitutional Vitals: Temp Pulse Resp BP Pulse Ox 97.4 F L 77 18 179/78 98 10/31/16 11:53 10/31/16 11:53 10/31/16 11:53 10/31/16 11:53 10/31/16 11:53 General appearance: Present: cooperative, A&O X 3 (somnolent but easily arousable ), no acute distress - Head Head exam: Present: atraumatic, normocephalic - Eye Eye exam: Present: conjuntiva pink, sclera anicteric - Respiratory Respiratory exam: Present: CTAB. Absent: accessory muscle use, rales, rhonchi, wheezes - Cardiovascular Cardiovascular exam: Present: RRR, +S1, +S2, systolic murmur - GI/Abdominal GI/Abdominal exam: Present: normal bowel sounds, soft, tenderness, no peritoneal signs. Absent: distended - Extremities Exam Extremities exam: Present: warm, radial pulses palpable and symetrical. Absent : calf tenderness, cyanotic, pedal edema Additional comments: splint in place right forearm, pulses 2/4, cap refill <3sec Incision on right hip clean, dry, intact, healing well - Neurological Exam Neurological exam: Present: oriented X3, no focal deficits. Absent: motor sensory deficit Internal Medicine: Result - Labs CBC & Chem 7: 10/31/16 08:42 10/31/16 08:42 Labs: Short CBC 10/31/16 Range/Units 08:42 WBC 19.0 H (4.3-11.1) K/mcL Hgb 9.4 L (11.5-15.4) g/dL Hct 28.8 L (35.3-44.9) % Plt Count 163 (140-400) K/mcL [facility] 10/31/16 08:42 Sodium 140 Potassium 3.6 Chloride 107 Carbon Dioxide 24 BUN 46 H D Creatinine 1.40 H Glucose 206 H Calcium 8.3 L - ABG Interpretation ABG results: PT/INR, D-dimer PT 12.0 Seconds (9.4-12.1) 10/27/16 16:52 - VTE Documentation of Mechanical Device: Venous foot pump, device Consult Discharge Plan - Plan Referrals: NONE,PCP [Primary Care Provider] - <Hira Howe - Last Filed: 10/31/16 23:24> Date of Encounter: 10/31/16 - Constitutional Vitals: Temp Pulse Resp BP Pulse Ox 98.0 F 86 28 178/71 96 10/31/16 22:31 10/31/16 22:31 10/31/16 22:31 10/31/16 22:31 10/31/16 22:31 Internal Medicine: Result - Labs CBC & Chem 7: 10/31/16 08:42 10/31/16 08:42 Labs: Short CBC 10/31/16 Range/Units 08:42 WBC 19.0 H (4.3-11.1) K/mcL Hgb 9.4 L (11.5-15.4) g/dL Hct 28.8 L (35.3-44.9) % Plt Count 163 (140-400) K/mcL BMP 10/31/16 08:42 Sodium 140 Potassium 3.6 Chloride 107 Carbon Dioxide 24 BUN 46 H D Creatinine 1.40 H Glucose 206 H Calcium 8.3 L - ABG Interpretation ABG results: PT/INR, D-dimer PT 12.0 Seconds (9.4-12.1) 10/27/16 16:52 - Attending Attestation I, Dr. Homer Howe, examined this patient with the Resident. She does not look good.. bouts of nausea, emesis, prob. from the IV antibiotics or the Narcotics. She is having bouts of Tachycardia that appear to be sinus vs. Atrial Tachy. Will cont. to give IV Lopressor for this.. She can be discharged when she is more alert, tolerating diet. We are not convinced she has apsirated, lungs remain fairly clear so will stop antibiotics
[2016-10-31] MEDS: Aspirin Enteric Coated 81 MG Tablet PO SCH (17:16)
[2016-10-31] MEDS: Famotidine 20 MG TABLET PO SCH ×2 (17:17→22:55)
[2016-10-31] MEDS: Magnesium Oxide 400 MG TABLET PO SCH ×2 (17:17→22:55)
[2016-10-31] MEDS: *HR* Metoprolol 5 MG/5 ML VIAL IVP PRN ×2 (17:22→22:50)
[2016-11-01 05:08] LABS: Basophils % 0.2 %; Hematocrit 28.1 % (35.3-44.9); Hemoglobin 9.1 g/dL (11.5-15.4); Immature Granulocytes % 1.1 % (0-4); Lymphocytes # 1.7 K/mcL (0.6-4.6); Lymphocytes % 10.1 %; Mean Corpuscular HGB Conc 32.4 g/dL (31.6-35.5); Mean Corpuscular Hemoglobin 29.6 pg (28.0-33.3); Mean Corpuscular Volume 91.5 fL (83.0-100.0); Mean Platelet Volume 11.2 fL (9.4-12.4); Monocytes # 1.9 K/mcL (0.0-1.3); Monocytes % 11.2 %; Neutrophils # 12.9 K/mcL (1.6-8.9); Nucleated Red Blood Cells 0.5 /100 WBC (0); Platelet Count 174 K/mcL (140-400); Red Blood Count 3.07 M/mcL (3.82-4.97); Red Cell Distribution Width 14.7 % (11.5-14.5); Segmented Neutrophils % 77.4 %
[2016-11-01 05:30] LABS: BUN/Creatinine Ratio 34 (6-26); Blood Urea Nitrogen 41 mg/dL (7-20); Calcium 8.2 mg/dL (8.6-10.8); Carbon Dioxide 25 mEq/L (19-29); Chloride 106 mEq/L (98-109); Glucose 156 mg/dL (70-99); Osmolality,Calculated 305 (280-300); Potassium 3.4 mEq/L (3.5-4.5); Sodium 141 mEq/L (136-145); eGFR For African Americans 51 (> 60); eGFR For Non-African Americans 42 (> 60)
[2016-11-01 05:43] LABS: Platelet Estimate Normal (Normal); Toxic Granulation Present (Not Present)
[2016-11-01] MEDS: *HR* Enoxaparin 30 MG/0.3 ML SYRINGE SQ SCH (06:16)
--- NOTE | 2016-11-01 08:11 | Internal Med Progress Note ---
<Adrienne Thornton - Last Filed: 11/01/16 17:14> Date of Encounter: 11/01/16 Time of Encounter: 08:11 - Assessment and plan (1) Fracture, intertrochanteric, right femur Current Visit: No Status: Acute Assessment and plan: s/p right hip ORIM fixation (10/28/16)-POD # 4 orthopedic evaluation appreciated DVT ppx with Enoxaparin SQ continue post op care as per ortho PT/OT evaluation today suggests skilled rehab, awaiting placement Plan: -Continue PT/OT while inpatient -Pain control -Placement in SNF per SW Qualifiers: Encounter type: initial encounter Fracture type: closed Fracture alignment: displaced Qualified Code(s): S72.141A - Displaced intertrochanteric fracture of right femur, initial encounter for closed fracture (2) Radius distal fracture Current Visit: No Status: Acute Assessment and plan: Cast in place, neurovascularly intact with some swelling and eccymosis today Qualifiers: Encounter type: initial encounter Fracture type: closed Fracture morphology: other intra-articular Laterality: right Qualified Code(s): S52.571A - Other intraarticular fracture of lower end of right radius, initial encounter for closed fracture (3) Nausea & vomiting Current Visit: Yes Status: Acute Assessment and plan: Patient has been nauseated and vomiting off and on all day yesterday and overnight with attempts at eating and giving PO meds. This morning she had green emesis. There was concern that these symptoms were secondary to post- anesthesia administration vs opioid side-effects vs abx side-effects vs post op ileus. Abx and opioids discontinued yesterday. Patient has been receiving zofran and phenergan with continued emesis. Bowel sounds present and patient had a BM this AM. Abdominal tenderness diffusely with palpation, but worse in the upper abdomen than lower, soft. Plan: -Hepatic panel, amylase, lipase -CT abd/pelvis -Continue anti-emetics -hold opioid pain meds Qualifiers: Vomiting type: unspecified Vomiting Intractability: unspecified Qualified Code(s): R11.2 - Nausea with vomiting, unspecified (4) Toavs-sq-qbxsajc kidney injury Current Visit: Yes Status: Resolved Assessment and plan: Unclear etiology; renal function improved and seems to be at baseline Qualifiers: Acute renal failure type: unspecified Chronic kidney disease stage: unspecified stage Qualified Code(s): N17.9 - Acute kidney failure, unspecified ; N18.9 - Chronic kidney disease, unspecified (5) CAD (coronary artery disease) Current Visit: Yes Status: Chronic Assessment and plan: continue home medications (ASA, BB, statin) Qualifiers: Coronary Disease-Associated Artery/Lesion type: [place] artery [place] vs. transplanted heart: [place] heart Associated angina: without angina Qualified Code(s): I25.10 - Atherosclerotic heart disease of [place] coronary artery without angina pectoris (6) Diabetes mellitus Current Visit: Yes Status: Acute Assessment and plan: closely monitor fingerstick and blood glucose sliding scale insulin as needed ADA diet accuchecks q6h while NPO, ACHS when able to tolerate PO intake Qualifiers: Diabetes mellitus type: type 2 Diabetes mellitus complication status: without complication Diabetes mellitus fpc insulin use: unspecified fpc insulin use status Qualified Code(s): E11.9 - Type 2 diabetes mellitus without complications (7) Hypertension Current Visit: Yes Status: Acute Assessment and plan: BP elevated overnight, but improved slightly from yesterday. Patient was unable to take PO BP meds and was given IV lopressor, will monitor Qualifiers: Hypertension type: essential hypertension Qualified Code(s): I10 - Essential (primary) hypertension (8) Sepsis Current Visit: Yes Status: Resolved Assessment and plan: Concern for aspiration PNA and empiric IV abx were started. Patient remains afebrile, WBC stable. Speech therapy evaluation: mechanically altered diet with pills in pureed. Blood cultures show no growth to date Resolved Qualifiers: Sepsis type: sepsis due to unspecified organism Qualified Code(s): A41.9 - Sepsis, unspecified organism (9) DVT prophylaxis Current Visit: Yes Status: Acute Assessment and plan: Lovenox SQ - Subjective Interval history: Patient seen and examined. She arouses to voice and follows commands, more alert from yesterday. She denies any chest pain, sob or pain today. She had no further tachycardia overnight. She continues to gag and has green emesis with attempts to eat and take pills, even when crushed. She has been getting phenergan overnight for her nausea. She denies previous issues with this before surgery. She denies abdominal pain unless it is being palpated. - Constitutional Vitals: Temp Pulse Resp BP Pulse Ox 97.5 F L 89 16 123/66 95 08/02/17 06:49 11/01/16 06:49 11/01/16 06:49 11/01/16 06:49 11/01/16 06:49 General appearance: Present: cooperative, A&O X 3 (somnolent but easily arousable ), no acute distress, answers questions appropriately - Head Head exam: Present: atraumatic, normocephalic - Eye Eye exam: Present: PERRL, conjuntiva pink, sclera anicteric Pupils: Present: PERRL - Respiratory Respiratory exam: Present: CTAB. Absent: accessory muscle use, rales, rhonchi, wheezes - Cardiovascular Cardiovascular exam: Present: RRR, +S1, +S2, systolic murmur. Absent: diastolic murmur, gallop, rubs - GI/Abdominal GI/Abdominal exam: Present: normal bowel sounds, soft, tenderness (diffusely, greater in the RUQ, LUQ, epigastric regions), no peritoneal signs. Absent: distended, firm - Extremities Exam Extremities exam: Present: joint swelling (right hand), normal capillary refill , radial pulses palpable and symetrical. Absent: calf tenderness, cyanotic, pedal edema, tenderness Additional comments: cast in place right forearm, neurovascularly intact with some swelling and eccymosis dressing in place over right lateral hip incision, leg neurovascularly intact - Neurological Exam Neurological exam: Present: CN II-XII intact, oriented X3, no focal deficits. Absent: pronater drift, facial droop, speech deficit - Psychiatric Psychiatric exam: Present: normal affect, normal mood - Skin Skin exam: Present: dry, intact, warm Internal Medicine: Result - Labs CBC & Chem 7: 11/01/16 04:22 11/01/16 04:22 Labs: Short CBC 10/31/16 11/01/16 Range/Units 08:42 04:22 WBC 19.0 H 16.7 H (4.3-11.1) K/mcL Hgb 9.4 L 9.1 L (11.5-15.4) g/dL Hct 28.8 L 28.1 L (35.3-44.9) % Plt Count 163 174 (140-400) K/mcL Neutrophils # 12.9 H (1.6-8.9) K/mcL BMP 10/31/16 11/01/16 08:42 04:22 Sodium 140 141 Potassium 3.6 3.4 L Chloride 107 106 Carbon Dioxide 24 25 BUN 46 H D 41 H Creatinine 1.40 H 1.21 H Glucose 206 H 156 H Calcium 8.3 L 8.2 L - ABG Interpretation ABG results: PT/INR, D-dimer PT 12.0 Seconds (9.4-12.1) 10/27/16 16:52 - VTE Documentation of Mechanical Device: Venous foot pump, device Consult Discharge Plan - Plan Referrals: NONE,PCP [Primary Care Provider] - <Hira Howe - Last Filed: 11/01/16 18:01> Date of Encounter: 11/01/16 - Constitutional Vitals: Temp Pulse Resp BP Pulse Ox 98.0 F 75 17 138/62 95 11/01/16 15:21 11/01/16 15:21 11/01/16 15:21 11/01/16 15:21 11/01/16 16:59 Internal Medicine: Result - Labs CBC & Chem 7: 11/01/16 04:22 11/01/16 04:22 Labs: Short CBC 11/01/16 Range/Units 04:22 WBC 16.7 H (4.3-11.1) K/mcL Hgb 9.1 L (11.5-15.4) g/dL Hct 28.1 L (35.3-44.9) % Plt Count 174 (140-400) K/mcL Neutrophils # 12.9 H (1.6-8.9) K/mcL [facility] 11/01/16 04:22 Sodium 141 Potassium 3.4 L Chloride 106 Carbon Dioxide 25 BUN 41 H Creatinine 1.21 H Glucose 156 H Calcium 8.2 L Liver Function 11/01/16 Range/Units 04:22 Total Bilirubin 1.1 (0.2-1.2) mg/dL Direct Bilirubin 0.6 H (0.0-0.5) mg/dL AST 25 (5-34) Units/L ALT 6 (0-55) Units/L Alkaline Phosphatase 81 (38-126) Units/L Albumin 2.1 L (3.5-5.0) g/dL - ABG Interpretation ABG results: PT/INR, D-dimer PT 12.0 Seconds (9.4-12.1) 10/27/16 16:52 - Impressions Impressions Abdomen/Pelvis CT 11/01/16 14:00 IMPRESSION: 1. No acute intra-abdominal abnormality to account for the patient's symptoms. 2. Sullivan catheter in place. 3. Status post cholecystectomy and hysterectomy. 4. Bilateral severe atherosclerosis. D/ / 11/01/2016 13:27:02 Minoo Murray MD / [facility] Interpreting Provider: Minoo Murray MD - Attending Attestation I examined this patient and my medical decision-making was reviewed with the Resident Physician. I agree with the documented findings, disposition and treatment plan as described except to the extent set forth below. She is much improved, now talking, more alert and awake, reaching for Water and without further N/V.. she most likely had adverse reaction to the narcotics or antibiotics. Her CT is normal, and she had a good BM during my visit.
[2016-11-01] MEDS: Insulin LISPRO 300 UNITS/3 ML VIAL SQ SCH ×4 (08:29→21:41)
[2016-11-01] MEDS: Famotidine 20 MG TABLET PO SCH ×2 (08:29→21:41)
[2016-11-01] MEDS: Aspirin Enteric Coated 81 MG Tablet PO SCH (08:29)
[2016-11-01] MEDS: Magnesium Oxide 400 MG TABLET PO SCH (08:29)
[2016-11-01] MEDS: Ondansetron 4 MG/2 ML VIAL IVP PRN ×2 (08:44→18:42)
[2016-11-01 11:17] LABS: Alanine Aminotransferase 6 Units/L (0-55); Albumin 2.1 g/dL (3.5-5.0); Albumin/Globulin Ratio 0.6 (1.1-2.2); Alkaline Phosphatase 81 Units/L (38-126); Amylase 71 Units/L (25-125); Aspartate Amino Transferase 25 Units/L (5-34); Bilirubin,Direct 0.6 mg/dL (0.0-0.5); Bilirubin,Indirect 0.5 mg/dL (0.0-1.2); Bilirubin,Total 1.1 mg/dL (0.2-1.2); Globulin 3.5 g/dL (2.4-3.5); Total Protein 5.6 g/dL (6.0-8.3)
[2016-11-01 11:18] LABS: Lipase < 10 Units/L (8-78)
[2016-11-01] MEDS: *HR* Promethazine 25 MG/ML VIAL IVP PRN (13:32)
[2016-11-02 05:38] LABS: Basophils % 0.3 %; Eosinophils % 0.1 %; Hematocrit 28.5 % (35.3-44.9); Lymphocytes # 2.4 K/mcL (0.6-4.6); Lymphocytes % 16.5 %; Mean Corpuscular HGB Conc 31.6 g/dL (31.6-35.5); Mean Platelet Volume 11.4 fL (9.4-12.4); Monocytes # 2.2 K/mcL (0.0-1.3); Monocytes % 15.3 %; Neutrophils # 9.6 K/mcL (1.6-8.9); Nucleated Red Blood Cells 0.5 /100 WBC (0); Platelet Count 167 K/mcL (140-400); Red Cell Distribution Width 14.8 % (11.5-14.5); Segmented Neutrophils % 65.8 %
[2016-11-02] MEDS: *HR* Enoxaparin 30 MG/0.3 ML SYRINGE SQ SCH (05:54)
[2016-11-02 05:57] LABS: Albumin 2.1 g/dL (3.5-5.0); Albumin/Globulin Ratio 0.6 (1.1-2.2); Calcium 7.9 mg/dL (8.6-10.8); Globulin 3.3 g/dL (2.4-3.5); Potassium 3.6 mEq/L (3.5-4.5); Total Protein 5.4 g/dL (6.0-8.3)
[2016-11-02 06:14] LABS: Large Platelets Present (Not Present); Platelet Estimate Normal (Normal); Toxic Granulation Present (Not Present)
[2016-11-02] MEDS: Insulin LISPRO 300 UNITS/3 ML VIAL SQ SCH ×4 (07:57→22:30)
[2016-11-02] MEDS: Aspirin Enteric Coated 81 MG Tablet PO SCH (08:35)
[2016-11-02] MEDS: Famotidine 20 MG TABLET PO SCH ×2 (08:35→22:32)
--- NOTE | 2016-11-02 08:37 | Internal Med Progress Note ---
<Adrienne Thornton - Last Filed: 11/02/16 17:20> Date of Encounter: 11/02/16 Time of Encounter: 08:35 - Assessment and plan (1) Fracture, intertrochanteric, right femur Current Visit: No Status: Acute Assessment and plan: s/p right hip ORIM fixation (10/28/16)-POD # 5 orthopedic evaluation appreciated DVT ppx with Enoxaparin SQ continue post op care as per ortho PT/OT evaluation today suggests skilled rehab, Patient has placement when able to go at [facility] and Care Plan: -Goal to work with PT/OT today -Pain control -Consider discharge when eating, possibly tomorrow. Qualifiers: Encounter type: initial encounter Fracture type: closed Fracture alignment: displaced Qualified Code(s): S72.141A - Displaced intertrochanteric fracture of right femur, initial encounter for closed fracture (2) Radius distal fracture Current Visit: No Status: Acute Assessment and plan: Cast in place, neurovascularly intact with some swelling and eccymosis today Qualifiers: Encounter type: initial encounter Fracture type: closed Fracture morphology: other intra-articular Laterality: right Qualified Code(s): S52.571A - Other intraarticular fracture of lower end of right radius, initial encounter for closed fracture (3) Hypertension Current Visit: Yes Status: Acute Assessment and plan: BP more controlled, will continue to monitor Qualifiers: Hypertension type: essential hypertension Qualified Code(s): I10 - Essential (primary) hypertension (4) Diabetes mellitus Current Visit: Yes Status: Acute Assessment and plan: closely monitor fingerstick and blood glucose sliding scale insulin as needed ADA diet accuchecks q6h while NPO, ACHS when able to tolerate PO intake Qualifiers: Diabetes mellitus type: type 2 Diabetes mellitus complication status: without complication Diabetes mellitus long term care phlebotomist insulin use: unspecified intermediate insulin use status Qualified Code(s): E11.9 - Type 2 diabetes mellitus without complications (5) Ruzxh-be-xhbwmkb kidney injury Current Visit: Yes Status: Resolved Assessment and plan: Unclear etiology; renal function improved and seems to be at baseline Qualifiers: Acute renal failure type: unspecified Chronic kidney disease stage: unspecified stage Qualified Code(s): N17.9 - Acute kidney failure, unspecified ; N18.9 - Chronic kidney disease, unspecified (6) Sepsis Current Visit: Yes Status: Resolved Assessment and plan: Concern for aspiration PNA and empiric IV abx were started. Patient remains afebrile, WBC stable. Speech therapy evaluation: mechanically altered diet with pills in pureed. Blood cultures show no growth to date Resolved Qualifiers: Sepsis type: sepsis due to unspecified organism Qualified Code(s): A41.9 - Sepsis, unspecified organism (7) Nausea & vomiting Current Visit: Yes Status: Resolved Qualifiers: Vomiting type: unspecified Vomiting Intractability: unspecified Qualified Code(s): R11.2 - Nausea with vomiting, unspecified (8) CAD (coronary artery disease) Current Visit: Yes Status: Chronic Assessment and plan: continue home medications (ASA, BB, statin) Qualifiers: Coronary Disease-Associated Artery/Lesion type: [place] artery [place] vs. transplanted heart: [place] heart Associated angina: without angina Qualified Code(s): I25.10 - Atherosclerotic heart disease of [place] coronary artery without angina pectoris (9) DVT prophylaxis Current Visit: Yes Status: Acute Assessment and plan: Lovenox SQ - Subjective Interval history: Patient seen and examined. She arouses to voice and follows commands, more alert from yesterday. She denies any chest pain, sob, n/v, abdominal pain today. She denies any emesis this AM. - Constitutional Vitals: Temp Pulse Resp BP Pulse Ox 98.6 F 75 18 151/68 95 11/02/16 07:40 11/02/16 07:40 11/02/16 07:40 11/02/16 07:40 11/02/16 07:40 General appearance: Present: cooperative, A&O X 3, no acute distress, answers questions appropriately - Head Head exam: Present: atraumatic, normocephalic - Respiratory Respiratory exam: Present: CTAB. Absent: accessory muscle use, rales, rhonchi, wheezes - Cardiovascular Cardiovascular exam: Present: RRR, +S1, +S2, systolic murmur. Absent: diastolic murmur, gallop, rubs - GI/Abdominal GI/Abdominal exam: Present: normal bowel sounds, soft, tenderness (LUQ, RUQ mild tenderness with palpation), no peritoneal signs. Absent: distended - Extremities Exam Extremities exam: Present: normal capillary refill, warm, radial pulses palpable and symetrical. Absent: calf tenderness, cyanotic, pedal edema Additional comments: splint in place right forearm, pulses 2/4, cap refill <3sec neurovascularly intact with mild swelling and eccymosis of hand Incision on right hip clean, dry, intact, healing well, neurovascularly intact - Neurological Exam Neurological exam: Present: CN II-XII intact, oriented X3, no focal deficits. Absent: pronater drift, facial droop, speech deficit - Psychiatric Psychiatric exam: Present: normal affect, normal mood - Skin Skin exam: Present: dry, intact, warm. Absent: diaphoretic, erythema Internal Medicine: Result - Labs CBC & Chem 7: 11/02/16 05:04 11/02/16 05:04 Labs: Short CBC 11/02/16 Range/Units 05:04 WBC 14.6 H (4.3-11.1) K/mcL Hgb 9.0 L (11.5-15.4) g/dL Hct 28.5 L (35.3-44.9) % Plt Count 167 (140-400) K/mcL Neutrophils # 9.6 H (1.6-8.9) K/mcL BMP 11/01/16 11/02/16 04:22 05:04 Sodium 141 138 Potassium 3.4 L 3.6 Chloride 106 107 Carbon Dioxide 25 24 BUN 41 H 37 H Creatinine 1.21 H 1.09 Glucose 156 H 136 H Calcium 8.2 L 7.9 L Liver Function 11/01/16 11/02/16 Range/Units 04:22 05:04 Total Bilirubin 1.1 1.0 (0.2-1.2) mg/dL Direct Bilirubin 0.6 H (0.0-0.5) mg/dL AST 25 51 H (5-34) Units/L ALT 6 13 (0-55) Units/L Alkaline Phosphatase 81 78 (38-126) Units/L Albumin 2.1 L 2.1 L (3.5-5.0) g/dL - ABG Interpretation ABG results: PT/INR, D-dimer PT 12.0 Seconds (9.4-12.1) 10/27/16 16:52 - Impressions Impressions Fluoroscopy 10/28/16 00:00 IMPRESSION: Intraprocedural fluoroscopic spot images as above. See separate procedure report for more information. D/ / 10/28/2016 09:11:59 Lilian Gonzalez MD / [facility] Interpreting Provider: Lilian Gonzalez MD Abdomen/Pelvis CT 11/01/16 14:00 IMPRESSION: 1. No acute intra-abdominal abnormality to account for the patient's symptoms. 2. Sullivan catheter in place. 3. Status post cholecystectomy and hysterectomy. 4. Bilateral severe atherosclerosis. D/ / 11/01/2016 13:27:02 Minoo Murray MD / [facility] Interpreting Provider: Minoo Murray MD - VTE Documentation of Mechanical Device: Venous foot pump, device Consult Discharge Plan - Plan Referrals: NONE,PCP [Primary Care Provider] - <Hira Howe - Last Filed: 11/02/16 20:38> Date of Encounter: 11/02/16 - Constitutional Vitals: Temp Pulse Resp BP Pulse Ox 99.2 F 82 18 131/68 95 11/02/16 20:07 11/02/16 20:07 11/02/16 20:07 11/02/16 20:07 11/02/16 20:07 Internal Medicine: Result - Labs CBC & Chem 7: 11/02/16 05:04 11/02/16 05:04 Labs: Short CBC 11/02/16 Range/Units 05:04 WBC 14.6 H (4.3-11.1) K/mcL Hgb 9.0 L (11.5-15.4) g/dL Hct 28.5 L (35.3-44.9) % Plt Count 167 (140-400) K/mcL Neutrophils # 9.6 H (1.6-8.9) K/mcL BMP 11/02/16 05:04 Sodium 138 Potassium 3.6 Chloride 107 Carbon Dioxide 24 BUN 37 H Creatinine 1.09 Glucose 136 H Calcium 7.9 L Liver Function 11/02/16 Range/Units 05:04 Total Bilirubin 1.0 (0.2-1.2) mg/dL AST 51 H (5-34) Units/L ALT 13 (0-55) Units/L Alkaline Phosphatase 78 (38-126) Units/L Albumin 2.1 L (3.5-5.0) g/dL - ABG Interpretation ABG results: PT/INR, D-dimer PT 12.0 Seconds (9.4-12.1) 10/27/16 16:52 - Impressions Impressions Fluoroscopy 10/28/16 00:00 IMPRESSION: Intraprocedural fluoroscopic spot images as above. See separate procedure report for more information. D/ / 10/28/2016 09:11:59 Lilian Gonzalez MD / [facility] Interpreting Provider: Lilian Gonzalez MD - Attending Attestation I examined this patient and my medical decision-making was reviewed with the Resident Physician. I agree with the documented findings, disposition and treatment plan as described except to the extent set forth below.
[2016-11-02] MEDS: Acetaminophen 325 MG TABLET PO PRN (15:25)
[2016-11-03] MEDS: Acetaminophen 325 MG TABLET PO PRN (01:04)
[2016-11-03 05:28] LABS: Hematocrit 25.4 % (35.3-44.9); Mean Corpuscular HGB Conc 31.5 g/dL (31.6-35.5); Mean Corpuscular Hemoglobin 29.5 pg (28.0-33.3); Mean Corpuscular Volume 93.7 fL (83.0-100.0); Mean Platelet Volume 10.9 fL (9.4-12.4); Platelet Count 170 K/mcL (140-400); Red Blood Count 2.71 M/mcL (3.82-4.97); Red Cell Distribution Width 14.5 % (11.5-14.5)
[2016-11-03 05:44] LABS: BUN/Creatinine Ratio 32 (6-26); Blood Urea Nitrogen 31 mg/dL (7-20); Calcium 7.5 mg/dL (8.6-10.8); Carbon Dioxide 24 mEq/L (19-29); Chloride 106 mEq/L (98-109); Glucose 153 mg/dL (70-99); Osmolality,Calculated 294 (280-300); Potassium 3.4 mEq/L (3.5-4.5); Sodium 137 mEq/L (136-145); eGFR For African Americans > 60 (> 60); eGFR For Non-African Americans 54 (> 60)
[2016-11-03] MEDS: *HR* Enoxaparin 30 MG/0.3 ML SYRINGE SQ SCH (06:54)
[2016-11-03] MEDS: Famotidine 20 MG TABLET PO SCH (08:25)
[2016-11-03] MEDS: Aspirin Enteric Coated 81 MG Tablet PO SCH (08:25)
[2016-11-03] MEDS: Insulin LISPRO 300 UNITS/3 ML VIAL SQ SCH ×3 (08:25→17:17)
[2016-11-03] MEDS ORDERED: Aminoglycoside Consult 1 EACH MC ONE (08:55)
[2016-11-03 11:14] VITALS: BP 135/66
--- NOTE | 2016-11-03 12:24 | Orthopedics Progress Note ---
Date of Encounter: 11/03/16 Time of Encounter: 11:30 Subjective Principal diagnosis: Tachycardia Interval history: POD#6 Right hip open reduction intramedullary nail fixation 10/28/16 Dr. Turner Patient seen at bedside - son at bedside. Incision clean and intact with dressing well afixed. Right short arm cast - intact in good condition. Secondary to right hand swelling cast is rubbing against skin at medial dorsal aspect. Requested nursing add cast padding to this area or make donut with stockinette to pad skin and prevent breakdown. Encouraged elbow range of motion and finger ROM secondary to swelling. Neurovascularly intact in all extremities. Right Hip: NWB RLE, No hip ROM, Hip precautions Right Wrist: NWB RUE, Short Arm Cast placed, ICE and elevate upper extremity. Focus on finger range of motion exercises* Patient going to [place] for rehab. F/up in office in 1 weeks for xrays and wound check* Objective Vital signs: Vital Signs Temp Pulse Resp BP Pulse Ox 11/03/16 11:07 98.6 F 63 16 135/66 96 11/03/16 07:29 98.1 F 74 14 129/68 96 11/03/16 04:03 98.8 F 67 16 112/73 97 11/02/16 23:24 98.9 F 72 18 149/66 94 11/02/16 20:07 99.2 F 82 18 131/68 95 11/02/16 14:53 98.7 F 78 16 153/78 96 Intake and Output 11/02/16 11/03/16 11/03/16 23:59 07:59 15:59 Intake Total 200 / 200 175 / 175 240 / 240 Output Total 100 / 100 Balance 100 / 100 175 / 175 240 / 240 Intake: Oral 200 / 200 175 / 175 240 / 240 Output: Urine 100 / 100 Other: Meal Dinner Breakfast Percent of Meal Consumed 50% 50% Stool Size Small Smear Stool Consistency loose loose soft Stool Color Brown Brown Green # Voids 1 # Urine Diapers 1 # Bowel Movements 1 1 # Bowel Movement Diapers 1 Blood Glucose* 160 165 152 - Labs CBC & BMP: 11/03/16 05:18 11/03/16 05:18 Labs: Abnormal lab results WBC 12.4 K/mcL (4.3-11.1) H 11/03/16 05:18 RBC 2.71 M/mcL (3.82-4.97) L 11/03/16 05:18 Hgb 8.0 g/dL (11.5-15.4) L 11/03/16 05:18 Hct 25.4 % (35.3-44.9) L 11/03/16 05:18 MCHC 31.5 g/dL (31.6-35.5) L 11/03/16 05:18 Band Neutrophils % 28.0 % (0-4) H 10/29/16 00:59 Neutrophils # 9.6 K/mcL (1.6-8.9) H 11/02/16 05:04 Monocytes # 2.2 K/mcL (0.0-1.3) H 11/02/16 05:04 Nucleated RBCs/100 WBC 0.5 /100 WBC (0) H 11/02/16 05:04 Toxic Granulation Present (Not Present) A 11/02/16 05:04 Large Platelets Present (Not Present) A 11/02/16 05:04 Polychromasia 1+ (Not Present) A 10/30/16 06:11 Basophilic Stippling 1+ (Not Present) A 10/29/16 00:59 Potassium 3.4 mEq/L (3.5-4.5) L 11/03/16 05:18 BUN 31 mg/dL (7-20) H 11/03/16 05:18 Est GFR (Non-Af Amer) 54 (> 60) L 11/03/16 05:18 BUN/Creatinine Ratio 32 (6-26) H 11/03/16 05:18 Glucose 153 mg/dL (70-99) H 11/03/16 05:18 POC Glucose 190 (58-89) H 11/02/16 17:05 Hemoglobin A1c 6.7 % (-5.6) H 10/27/16 16:52 Calcium 7.5 mg/dL (8.6-10.8) L 11/03/16 05:18 Phosphorus 1.9 mg/dL (2.3-4.7) L 10/30/16 06:11 Magnesium 1.5 mg/dL (1.6-2.6) L 10/30/16 06:11 Direct Bilirubin 0.6 mg/dL (0.0-0.5) H 11/01/16 04:22 AST 51 Units/L (5-34) H 11/02/16 05:04 Troponin I 0.05 ng/mL (0-0.03) H* 10/29/16 21:02 Serum Total Protein 5.4 g/dL (6.0-8.3) L 11/02/16 05:04 Albumin 2.1 g/dL (3.5-5.0) L 11/02/16 05:04 Albumin/Globulin Ratio 0.6 (1.1-2.2) L 11/02/16 05:04 Urine Clarity Cloudy (Clear) A 10/28/16 20:00 Ur Specific [place] 1.028 (1.010-1.025) H 10/28/16 20:00 Urine Protein 100 mg/dL (Neg-Trace) H 10/28/16 20:00 Urine Ketones Trace mg/dL (Negative) H 10/28/16 20:00 Urine Blood Small (Negative) H 10/28/16 20:00 Ur Leukocyte Esterase Moderate (Negative) H 10/28/16 20:00 Urine Microscopic RBC 5-15 per hpf (0-3) H 10/28/16 20:00 Urine Microscopic WBC TNTC per hpf (0-3) H 10/28/16 20:00 Ur Squamous Epith Cells Moderate per lpf (None-Few) H 10/28/16 20:00 Urine Bacteria Many per hpf (None-Few) H 10/28/16 20:00 Vancomycin Trough 22.2 mcg/mL (10-20) H* 10/31/16 05:15 - VTE Documentation of Mechanical Device: Venous foot pump, device Consult Discharge Plan - Plan Referrals: NONE,PCP [Primary Care Provider] - Clementine Langford, PAC [Physician Felt Hat Pouncing Operator Hand] - 11/09/16 2:15 pm
--- NOTE | 2016-11-03 14:52 | Discharge Summary ---
Date of Encounter: 11/03/16 Time of Encounter: 14:51 - Discharge Diagnosis (1) Fracture, intertrochanteric, right femur Priority: Primary Status: Acute Qualifiers: Encounter type: initial encounter Fracture type: closed Fracture alignment: displaced Qualified Code(s): S72.141A - Displaced intertrochanteric fracture of right femur, initial encounter for closed fracture (2) Radius distal fracture Priority: Secondary Status: Acute Qualifiers: Encounter type: initial encounter Fracture type: closed Fracture morphology: other intra-articular Laterality: right Qualified Code(s): S52.571A - Other intraarticular fracture of lower end of right radius, initial encounter for closed fracture (3) Sepsis Priority: Secondary Status: Resolved Qualifiers: Sepsis type: sepsis due to unspecified organism Qualified Code(s): A41.9 - Sepsis, unspecified organism (4) Nausea & vomiting Priority: Secondary Status: Resolved Qualifiers: Vomiting type: unspecified Vomiting Intractability: unspecified Qualified Code(s): R11.2 - Nausea with vomiting, unspecified (5) Enbgv-go-shvhwat kidney injury Priority: Secondary Status: Resolved Qualifiers: Acute renal failure type: unspecified Chronic kidney disease stage: unspecified stage Qualified Code(s): N17.9 - Acute kidney failure, unspecified ; N18.9 - Chronic kidney disease, unspecified (6) Diabetes mellitus Priority: Secondary Status: Chronic Qualifiers: Diabetes mellitus type: type 2 Diabetes mellitus complication status: without complication 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 transplanted heart: [place] heart Associated angina: without angina Qualified Code(s): I25.10 - Atherosclerotic heart disease of [place] coronary artery without angina pectoris - Discharge Medications Home Medications: Amlodipine [Norvasc] 5 mg PO DAILY 01/19/15 [History] Aspirin Enteric Coated [Aspirin EC] 81 mg PO DAILY 01/19/15 [History] Furosemide [Lasix] 40 mg PO DAILY 01/19/15 [History] Magnesium Oxide [Mag-Ox] 400 mg PO BID 01/19/15 [History] Metoprolol [Lopressor] 25 mg PO BID 01/19/15 [History] Potassium Chloride 20 meq PO DAILY 01/19/15 [History] Simvastatin [Zocor] 80 mg PO HS 01/19/15 [History] TraMADol [Ultram] 50 mg PO Q4HR 01/19/15 [History] glipiZIDE [Glucotrol] 10 mg PO BIDWM 01/19/15 [History] Allergies/Adverse Reactions: Allergies No Known Allergies Allergy (Verified 10/27/16 11:13) Procedures/tests Complete & Pending: Procedures Performed prior 72 hours Category Date Time Status CT abd pelvis wo no iv no oral [CT] Routine Cat Scan 11/01/16 14:00 Draft Date of admission: 10/27/16 15:07 Primary care physician: PCP NONE Consults: 10/27/16 16:13 Consult to Shed Workers Supervisor [CONS] Routine Reason for SW Consult: discharge planning 10/28/16 09:38 Consult to Occupational Therapy [CONS] Routine Comment: Evaluate, develop and implement POC Reason for Consult: post hip surgery Consult to Orthopedic Navigator [CONS] [CONS] Routine Consult to Physical Therapy [CONS] Routine Comment: Evaluate, develop and implement POC Reason for Consult: post hip surgery Consult to Shed Workers Supervisor [CONS] Routine Reason for SW Consult: post -op hip fracture RT Post Op Consult [CONS] Routine 10/29/16 07:52 Consult to Cardiology [CONS] Routine Comment: Consulting Provider: Cardiology Mckayla Reason for Consult: EKG changes Call Completed: Yes 10/30/16 08:03 Consult to Speech Therapy [CONS] Routine Comment: Evaluate, develop and implement POC Reason for Consult: AMS Call Completed: Yes 10/30/16 22:26 Consult to Shed Workers Supervisor [CONS] Routine Reason for SW Consult: alcoholism ? Discharging clinician: Hira Howe Anticipated date of discharge: 11/03/16 - Patient Status Disposition: Transfer SNF Condition: Fair Functional capacity at discharge: bed bound - Discharge Instructions Follow Up With: Clementine Langford PAC [Physician Loom Stop Checker] - 11/09/16 2:15 pm NONE,PCP [Primary Care Provider] - - Diet and Activity Activity: as per physical therapy Diet: other (mechanically soft as per speech therapy) Interval History: Patient seen and examined. Reports that she is feeling better today. Able to tolerate po intake. Denies chest pain, dyspnea, cough, nausea, vomiting, diarrhea, or dysuria. Hospital course: Ms. Morales is a 86 year old female who presented after a mechanical fall with right hip fracture and distal radius fracture. She underwent right hip ORIM fixation (10/28/16) and placed in a right wrist splint. On POD #1 there was concern for aspiration pneumonia empiric antibiotics were started, but discontinued 2 days later after further evaluation. She continued to progress and is discharged for further rehabilitation and care. - Time Spent with Patient Total time spent providing and/or coordinating discharge services: - Constitutional Vitals: Temp Pulse Resp BP Pulse Ox 98.6 F 63 16 135/66 96 11/03/16 11:07 11/03/16 11:07 11/03/16 11:07 11/03/16 11:07 11/03/16 11:07 General appearance: Present: cooperative, A&O X 3, no acute distress, answers questions appropriately - Head Head exam: Present: atraumatic, normocephalic - Eye Eye exam: Present: sclera anicteric - ENT ENT exam: Present: mucous membranes moist - Respiratory Respiratory exam: Present: CTAB. Absent: rales, rhonchi, wheezes - Cardiovascular Cardiovascular exam: Present: RRR, +S1, +S2, systolic murmur. Absent: diastolic murmur - GI/Abdominal GI/Abdominal exam: Present: normal bowel sounds, soft. Absent: distended, rigid , tenderness - Extremities Exam Additional comments: Normal capillary refill, warm, radial pulses palpable and symetrical. Absent: calf tenderness, cyanotic, pedal edema Splint in place right forearm, pulses 2/4, cap refill <3sec neurovascularly intact with mild swelling and eccymosis of hand Incision on right hip clean, dry, intact, healing well, neurovascularly intact. - Neurological Exam Neurological exam: Present: alert, CN II-XII intact, no focal deficits. Absent : facial droop, speech deficit - Psychiatric Psychiatric exam: Present: normal affect, normal mood - VTE Documentation of Mechanical Device: Venous foot pump, device
--- NOTE | 2016-11-03 14:58 | Physician Discharge Referral ---
<Justo Dawn - Last Filed: 11/03/16 14:53> ExtendedCare Referral Info Transfer To: [facility] & Care Provider in Charge after Transfer: PCP Institutional Level of Care: Skilled - Diagnosis (1) Fracture, intertrochanteric, right femur Priority: Primary Status: Acute (2) Radius distal fracture Priority: Secondary Status: Acute (3) Sepsis Priority: Secondary Status: Resolved (4) Nausea & vomiting Priority: Secondary Status: Resolved (5) Ufxtg-hy-tdeowxy kidney injury Priority: Secondary Status: Resolved (6) Diabetes mellitus Priority: Secondary Status: Chronic (7) Hypertension Priority: Secondary Status: Chronic (8) CAD (coronary artery disease) Priority: Secondary Status: Chronic Prognosis: Fair Aware of Diagnosis: Patient, Family Aware of Prognosis: Patient, Family - Transfer Medications Prescriptions: Tramadol HCl [Ultram] 50 mg PO QID PRN #120 tab PRN Reason: Pain Home Medications: Amlodipine [Norvasc] 5 mg PO DAILY 01/19/15 [History] Aspirin Enteric Coated [Aspirin EC] 81 mg PO DAILY 01/19/15 [History] Furosemide [Lasix] 40 mg PO DAILY 01/19/15 [History] Magnesium Oxide [Mag-Ox] 400 mg PO BID 01/19/15 [History] Metoprolol [Lopressor] 25 mg PO BID 01/19/15 [History] Potassium Chloride 20 meq PO DAILY 01/19/15 [History] Simvastatin [Zocor] 80 mg PO HS 01/19/15 [History] TraMADol [Ultram] 50 mg PO Q4HR 01/19/15 [History] glipiZIDE [Glucotrol] 10 mg PO BIDWM 01/19/15 [History] Tramadol HCl [Ultram] 50 mg PO QID PRN #120 tab 11/03/16 [Rx] Allergies/Adverse Reactions: Allergies No Known Allergies Allergy (Verified 10/27/16 11:13) - Respiratory Orders None Smoking Cessation: Smoking cessation has been advised. For more information, call the [employer] Tobacco Quit Line at 6-543-OMCP-NOW. - Advance Directives Code Status: Full Code - Mobility Orders Other (NWB currently, but continue to progress per Physical Therapy) - Rehabiliation Orders Rehab Potential: Fair Rehab Orders: Evaluation for Physical Therapy, Evaluation for Occupational Therapy - Diet Orders Mechanical Soft, Pureed CERTIFICATION: I certify that the transfer of the above named patient to an Extended Care Facility is necessary for the continuing treatment of the diagnosis listed. The above information is true and accurate reflection of patient's current condition. Confidential - Redisclosure prohibited without a patient's written consent. <Hira Howe - Last Filed: 11/03/16 17:58> - Respiratory Orders Smoking Cessation: Smoking cessation has been advised. For more information, call the [place] Tobacco Quit Line at 3-020-MWMU-NOW. CERTIFICATION: I certify that the transfer of the above named patient to an Extended Care Facility is necessary for the continuing treatment of the diagnosis listed. The above information is true and accurate reflection of patient's current condition. Confidential - Redisclosure prohibited without a patient's written consent. - Attending Attestation I examined this patient and my medical decision-making was reviewed with the Resident Physician. I agree with the documented findings, disposition and treatment plan as described except to the extent set forth below.
[2016-11-03] MEDS ORDERED: traMADol 50 MG TABLET PO ONE (18:04)
== END 2016-11-03 18:45 | DRG 480 ==
LOC: 3NENU 15:07
PROVIDERS: ADMIT Family Medicine; ATTEND Internal Medicine